=== PATIENT | male | born 1940 | race Caucasian/White ===

== ENCOUNTER 2017-09-22 15:00 | Emergency (ER) | payer MEDICARE, OTHER ==
[2017-09-22] MEDS: HYDROmorphONE 0.5 MG/0.5 ML SYG IV (22:02)
== END 2017-09-22 22:14 | disposition home or self-care (01) ==
LOC: E/R 15:00
DX: G89.4 Chronic pain syndrome (principal); J44.9 Chronic obstructive pulmonary disease, unspecified; I12.9 Hypertensive chronic kidney disease with stage 1 through stage 4 chronic kidney disease, or unspecified chronic kidney disease; N18.9 Chronic kidney disease, unspecified; I25.10 Atherosclerotic heart disease of native coronary artery without angina pectoris; E11.22 Type 2 diabetes mellitus with diabetic chronic kidney disease; Z79.4 Long term (current) use of insulin
CPT/HCPCS: 93005; 96374; 99284-25

== ENCOUNTER 2017-09-22 16:28 | Emergency (ER) | payer MEDICARE, OTHER | END 2017-09-22 18:30 | disposition left against medical advice (07) | LOC: FTE 16:28 → E/R 18:30 | DX: Z53.21 Procedure and treatment not carried out due to patient leaving prior to being seen by health care provider (principal) ==

== ENCOUNTER → 2017-10-28 | Outpatient (CLI) | payer MEDICARE, OTHER ==
[2017-10-28 10:01] LABS: ADD MAN DIFF? NO
[2017-10-28 10:13] LABS: BASOPHIL # 0.1 10^3/ul (0.0-0.1); BASOPHILS % 0.5 % (0.0-2.0); EOSINOPHILS # 0.4 10^3/ul (0.0-0.5); EOSINOPHILS % 3.8 % (0.0-7.0); HEMOGLOBIN 9.8 g/dl (14.0-18.0); LYMPHOCYTES # 2.2 10^3/ul (0.8-2.9); MEAN CORPUSCULAR HEMOGLOBIN 27.4 pg (29.0-33.0); MEAN CORPUSCULAR HGB CONC 32.7 g/dl (32.0-37.0); MEAN CORPUSCULAR VOLUME 83.8 fl (82.0-101.0); MEAN PLATELET VOLUME 9.8 fl (7.4-10.4); MONOCYTE # 0.9 10^3/ul (0.3-0.9); MONOCYTES % 8.3 % (0.0-11.0); NEUTROPHIL # 7.3 10^3/ul (1.6-7.5); NEUTROPHILS % 67.1 % (39.0-77.0); PLATELET COUNT 466 10^3/UL (140-415); RED BLOOD COUNT 3.58 10^6/ul (4.70-6.10); RED CELL DISTRIBUTION WIDTH 15.1 % (11.5-14.5)
[2017-10-28 10:13] LABS: WHITE BLOOD COUNT 10.8 10^3/ul (4.8-10.8)
[2017-10-28 10:29] LABS: ALANINE AMINOTRANSFERASE 29 IU/L (13-69); ALBUMIN 3.4 g/dl (3.3-4.9); ALBUMIN/GLOBULIN RATIO 1.06; ALKALINE PHOSPHATASE 75 IU/L (42-121); ANION GAP 14 (8-16); ASPARTATE AMINO TRANSFERASE 20 IU/L (15-46); BLOOD UREA NITROGEN 31 mg/dl (7-20); CALCIUM 8.6 mg/dl (8.4-10.2); CARBON DIOXIDE 20 mmol/L (21-31); CHLORIDE 110 mmol/L (97-110); CREATININE 3.02 mg/dl (0.61-1.24); GLUCOSE 128 mg/dl (70-220); POTASSIUM 4.7 mmol/L (3.5-5.1); SODIUM 139 mmol/L (135-144); TOTAL PROTEIN 6.6 g/dl (6.1-8.1)
[2017-10-28 10:35] LABS: ADD UMIC YES; UR ASCORBIC ACID 20 mg/dL (NEGATIVE); UR BILIRUBIN (Dip) NEGATIVE (NEGATIVE); UR BLOOD (Dip) NEGATIVE (NEGATIVE); UR CLARITY CLEAR (CLEAR); UR COLOR YELLOW (YELLOW); UR GLUCOSE (Dip) 1+ mg/dL (NEGATIVE); UR KETONES (Dip) NEGATIVE (NEGATIVE); UR LEUKOCYTE ESTERASE (Dip) NEGATIVE Leu/ul (NEGATIVE); UR NITRITE (Dip) NEGATIVE (NEGATIVE); UR RBC 1 /HPF (0-5); UR TOTAL PROTEIN (Dip) 3+ mg/dl (NEGATIVE); UR UROBILINOGEN (Dip) NEGATIVE (NEGATIVE); UR WBC 1 /HPF (0-5)
[2017-10-29 15:56] LABS: CREATININE, RANDOM URINE 122 mg/dL (20-370); MICROALBUMIN 588.5 mg/dL; MICROALBUMIN/CREATININE RATIO 4824 (<30)
[2017-10-29 18:56] LABS: PTH CALCIUM 8.5 mg/dL (8.6-10.3)
== END | disposition home or self-care (01) ==
LOC: LAB 08:44
DX: N18.9 Chronic kidney disease, unspecified (principal); E11.9 Type 2 diabetes mellitus without complications; E21.3 Hyperparathyroidism, unspecified; E55.9 Vitamin D deficiency, unspecified
CPT/HCPCS: 80053; 81001; 82043; 82306; 83970; 85025

== ENCOUNTER 2017-11-12 09:32 | Emergency (ER) | payer MEDICARE, OTHER ==
[2017-11-12 10:19] LABS: ADD MAN DIFF? NO
[2017-11-12 10:22] LABS: BASOPHILS % 0.3 % (0.0-2.0); EOSINOPHILS # 0.1 10^3/ul (0.0-0.5); EOSINOPHILS % 0.4 % (0.0-7.0); HEMATOCRIT 25.9 % (42.0-52.0); HEMOGLOBIN 8.5 g/dl (14.0-18.0); LYMPHOCYTES # 1.3 10^3/ul (0.8-2.9); LYMPHOCYTES % 8.8 % (15.0-51.0); MEAN CORPUSCULAR HEMOGLOBIN 27.8 pg (29.0-33.0); MEAN CORPUSCULAR HGB CONC 32.8 g/dl (32.0-37.0); MEAN CORPUSCULAR VOLUME 84.6 fl (82.0-101.0); MEAN PLATELET VOLUME 9.4 fl (7.4-10.4); MONOCYTE # 0.9 10^3/ul (0.3-0.9); MONOCYTES % 6.5 % (0.0-11.0); NEUTROPHIL # 12.1 10^3/ul (1.6-7.5); NEUTROPHILS % 83.4 % (39.0-77.0); PLATELET COUNT 343 10^3/UL (140-415); RED BLOOD COUNT 3.06 10^6/ul (4.70-6.10); RED CELL DISTRIBUTION WIDTH 16.4 % (11.5-14.5)
[2017-11-12 10:22] LABS: WHITE BLOOD COUNT 14.5 10^3/ul (4.8-10.8)
[2017-11-12 10:30] LABS: ADD UMIC YES; UR ASCORBIC ACID 20 mg/dL (NEGATIVE); UR BILIRUBIN (Dip) NEGATIVE (NEGATIVE); UR BLOOD (Dip) NEGATIVE (NEGATIVE); UR CLARITY SLIGHTLY CLOUDY (CLEAR); UR COLOR YELLOW (YELLOW); UR GLUCOSE (Dip) 2+ mg/dL (NEGATIVE); UR GRANULAR CAST FEW /HPF (NONE SEEN); UR KETONES (Dip) NEGATIVE (NEGATIVE); UR LEUKOCYTE ESTERASE (Dip) NEGATIVE Leu/ul (NEGATIVE); UR NITRITE (Dip) NEGATIVE (NEGATIVE); UR RBC 1 /HPF (0-5); UR SPECIFIC GRAVITY (Dip) 1.019 (1.003-1.030); UR TOTAL PROTEIN (Dip) 3+ mg/dl (NEGATIVE); UR UROBILINOGEN (Dip) NEGATIVE (NEGATIVE); UR WBC 2 /HPF (0-5)
[2017-11-12 10:50] LABS: ALANINE AMINOTRANSFERASE 28 IU/L (13-69); ALBUMIN 3.7 g/dl (3.3-4.9); ALBUMIN/GLOBULIN RATIO 1.12; ALKALINE PHOSPHATASE 77 IU/L (42-121); ANION GAP 15 (8-16); ASPARTATE AMINO TRANSFERASE 26 IU/L (15-46); BLOOD UREA NITROGEN 52 mg/dl (7-20); CALCIUM 9.2 mg/dl (8.4-10.2); CARBON DIOXIDE 18 mmol/L (21-31); CHLORIDE 110 mmol/L (97-110); CREATININE 3.52 mg/dl (0.61-1.24); GLUCOSE 149 mg/dl (70-220); LIPASE 205 U/L (23-300); SODIUM 138 mmol/L (135-144)
[2017-11-12] MEDS: ONDANSETRON 4 MG INJ IV (10:53)
[2017-11-12] MEDS: KETOROLAC 15 MG INJ IV (10:53)
[2017-11-12] MEDS: SOD CHLORIDE 0.9% 500 ML IV (10:53)
[2017-11-12 11:00] LABS: POTASSIUM 5.2 mmol/L (3.5-5.1)
[2017-11-12] MEDS: CEFTRIAXONE 1 GM/50 ML (PMX) 50 ML IVPB (13:13)
== END 2017-11-12 13:30 | disposition home or self-care (01) ==
LOC: E/R 09:32
DX: N30.90 Cystitis, unspecified without hematuria (principal); D72.829 Elevated white blood cell count, unspecified; N18.9 Chronic kidney disease, unspecified; E87.5 Hyperkalemia; E87.2 Acidosis; I12.9 Hypertensive chronic kidney disease with stage 1 through stage 4 chronic kidney disease, or unspecified chronic kidney disease; J44.9 Chronic obstructive pulmonary disease, unspecified; Z79.4 Long term (current) use of insulin
CPT/HCPCS: 36415; 74176; 80053; 81001; 83690; 85025; 87086; 96374; 96375; 99285-25

== ENCOUNTER 2017-11-15 10:46 | Inpatient (IN) | payer MEDICARE, OTHER ==
[2017-11-15 11:23] LABS: WHITE BLOOD COUNT 12.5 10^3/ul (4.8-10.8)
[2017-11-15 11:23] LABS: ADD MAN DIFF? NO; BASOPHIL # 0.1 10^3/ul (0.0-0.1); BASOPHILS % 0.4 % (0.0-2.0); EOSINOPHILS # 0.3 10^3/ul (0.0-0.5); EOSINOPHILS % 2.6 % (0.0-7.0); HEMATOCRIT 30.5 % (42.0-52.0); HEMOGLOBIN 9.6 g/dl (14.0-18.0); LYMPHOCYTES # 1.1 10^3/ul (0.8-2.9); MEAN CORPUSCULAR HEMOGLOBIN 27.4 pg (29.0-33.0); MEAN CORPUSCULAR HGB CONC 31.5 g/dl (32.0-37.0); MEAN CORPUSCULAR VOLUME 87.1 fl (82.0-101.0); MEAN PLATELET VOLUME 9.1 fl (7.4-10.4); MONOCYTE # 0.8 10^3/ul (0.3-0.9); MONOCYTES % 6.4 % (0.0-11.0); NEUTROPHIL # 10.1 10^3/ul (1.6-7.5); NEUTROPHILS % 81.1 % (39.0-77.0); PLATELET COUNT 459 10^3/UL (140-415); RED CELL DISTRIBUTION WIDTH 16.4 % (11.5-14.5)
[2017-11-15] MEDS: METHYLPREDNISOLONE 125 MG INJ IV (11:24)
[2017-11-15] MEDS: ALBUTEROL 0.5% (NEB) 2.5 MG/0.5 ML AMP INH (11:32)
[2017-11-15] MEDS: IPRATROPIUM (NEB) 0.5 MG/2.5 ML AMP INH (11:32)
[2017-11-15 11:45] LABS: INR 1.04; PROTIME 13.7 Sec (11.9-14.9); PT RATIO 1.1
[2017-11-15 11:57] LABS: ANION GAP 19 (8-16); BLOOD UREA NITROGEN 51 mg/dl (7-20); CALCIUM 9.7 mg/dl (8.4-10.2); CARBON DIOXIDE 18 mmol/L (21-31); CHLORIDE 111 mmol/L (97-110); GLUCOSE 166 mg/dl (70-220); POTASSIUM 5.5 mmol/L (3.5-5.1); SODIUM 142 mmol/L (135-144)
[2017-11-15 11:57] LABS: LACTIC ACID 0.8 mmol/L (0.5-2.0)
[2017-11-15] MEDS: ACETAMINOPHEN 325 MG TAB PO (12:25)
[2017-11-15] MEDS ORDERED: ACETAMINOPHEN 325 MG TAB PO (13:30)
[2017-11-15] MEDS ORDERED: ONDANSETRON 4 MG INJ IV ×2 (13:30→15:00)
[2017-11-15] MEDS: morphine 4 MG/ML VIAL IV (13:52)
[2017-11-15] MEDS ORDERED: CEFTRIAXONE 1 GM/50 ML (PMX) 50 ML IVPB (15:00)
[2017-11-15] MEDS ORDERED: NACL 0.9% 3 ML SYG IV (15:00)
[2017-11-15] MEDS ORDERED: GLUCOSE GEL 15 GRAM TUBE BUCCAL (15:00)
[2017-11-15] MEDS ORDERED: GLUCOSE GEL 15 GRAM TUBE PO ×2 (15:00)
[2017-11-15] MEDS ORDERED: DEXTROSE 50% 50 ML SYRINGE IV ×2 (15:00)
[2017-11-15] MEDS ORDERED: GLUCAGON 1 MG INJ IM (15:00)
[2017-11-15] MEDS ORDERED: DOCUSATE SODIUM 100 MG CAP PO (15:00)
[2017-11-15] MEDS ORDERED: AZITHROMYCIN 500MG/NS (PMX) 250 ML IVPB (15:00)
[2017-11-15] MEDS: HYDROCODONE/APAP (5/325) TAB PO (15:26)
[2017-11-15] MEDS: CEFTRIAXONE 1 GM/50 ML (PMX) 50 ML IVPB (15:38)
[2017-11-15] MEDS: SOD CHLORIDE 0.45% 1,000 ML IV (15:38)
[2017-11-15] MEDS: GUAIFENESIN/DM (SR) TAB PO (16:24)
[2017-11-15] MEDS: AZITHROMYCIN 500MG/NS (PMX) 250 ML IVPB (16:25)
[2017-11-15] MEDS: ALBUTEROL/IPRATROPIUM (NEB) 3 ML AMP HHN ×2 (17:29→22:08)
[2017-11-15] MEDS: ERGOCALCIFEROL 50,000 UNIT CAP PO (17:32)
[2017-11-15] MEDS: INSULIN ASPART [NOVOLOG] 3 ML PEN SC ×4 (17:34→20:57)
[2017-11-15 18:05] LABS: ANION GAP 23 (8-16); BLOOD UREA NITROGEN 46 mg/dl (7-20); CARBON DIOXIDE 14 mmol/L (21-31); CHLORIDE 109 mmol/L (97-110); CREATININE 3.47 mg/dl (0.61-1.24); POTASSIUM 5.5 mmol/L (3.5-5.1); SODIUM 140 mmol/L (135-144)
[2017-11-15 18:12] LABS: GLUCOSE 479 mg/dl (70-220)
[2017-11-15] MEDS: morphine 2 MG INJ IV ×2 (19:10→20:26)
[2017-11-15] MEDS: INSULIN REGULAR, HUMAN 100 UNIT/1 ML 3ML VIAL IV (19:48)
[2017-11-15] MEDS: MAGNESIUM SULFATE 2 GM/50 ML 50 ML IVPB (19:50)
[2017-11-15] MEDS ORDERED: morphine 2 MG INJ IV (20:30)
[2017-11-15] MEDS: SALMETEROL/FLUTICASONE 100/50 INHA INH (20:35)
[2017-11-15] MEDS: METOPROLOL 50 MG TAB PO (20:39)
[2017-11-15] MEDS: GABAPENTIN 300 MG CAP PO (20:40)
[2017-11-15] MEDS: HEPARIN 5,000 UNIT/0.5 ML VIAL SC (20:45)
[2017-11-15] MEDS: MONTELUKAST 10 MG TAB PO (21:31)
[2017-11-15] MEDS: LEVETIRACETAM 500 MG TAB PO (21:31)
[2017-11-15] MEDS: METHYLPREDNISOLONE 40 MG INJ IV (22:07)
[2017-11-16] MEDS: ALBUTEROL/IPRATROPIUM (NEB) 3 ML AMP HHN ×4 (01:00→22:30)
[2017-11-16] MEDS: ACCU-CHEK XX (02:21)
[2017-11-16] MEDS: SOD CHLORIDE 0.45% 1,000 ML IV ×3 (03:50→17:10)
[2017-11-16] MEDS: METHYLPREDNISOLONE 40 MG INJ IV ×2 (06:48→20:48)
[2017-11-16] MEDS ORDERED: INSULIN GLARGINE [LANtus] 3 ML PEN SC (08:00)
[2017-11-16] MEDS: INSULIN ASPART [NOVOLOG] 3 ML PEN SC ×7 (09:34→20:48)
[2017-11-16] MEDS: SALMETEROL/FLUTICASONE 100/50 INHA INH ×2 (09:35→20:47)
[2017-11-16] MEDS: INSULIN GLARGINE [LANtus] 3 ML PEN SC ×2 (09:35→11:43)
[2017-11-16] MEDS: TAMSULOSIN (SR) 0.4 MG CAP PO (09:36)
[2017-11-16] MEDS: CITRIC ACID/SODIUM CITRATE 15 ML CUP PO ×3 (09:36→20:47)
[2017-11-16] MEDS: LEVETIRACETAM 500 MG TAB PO ×2 (09:37→20:48)
[2017-11-16] MEDS: GUAIFENESIN/DM (SR) TAB PO (09:37)
[2017-11-16] MEDS: METOPROLOL 50 MG TAB PO ×2 (09:37→20:49)
[2017-11-16] MEDS: NIFEdipine (XL) 60 MG TAB PO (09:38)
[2017-11-16] MEDS: CLOPIDOGREL 75 MG TAB PO (09:38)
[2017-11-16] MEDS: PANTOPRAZOLE (EC) 40 MG TAB PO (09:38)
[2017-11-16] MEDS: GABAPENTIN 300 MG CAP PO ×3 (09:38→20:48)
[2017-11-16] MEDS: HEPARIN 5,000 UNIT/0.5 ML VIAL SC ×2 (09:39→20:57)
[2017-11-16 11:09] LABS: ADD MAN DIFF? NO
[2017-11-16 11:12] LABS: ABNORMAL IP MESSAGE 1; BASOPHILS % 0.1 % (0.0-2.0); HEMATOCRIT 22.1 % (42.0-52.0); HEMOGLOBIN 7.1 g/dl (14.0-18.0); LYMPHOCYTES # 0.6 10^3/ul (0.8-2.9); MEAN CORPUSCULAR HGB CONC 32.1 g/dl (32.0-37.0); MEAN PLATELET VOLUME 9.9 fl (7.4-10.4); MONOCYTE # 0.3 10^3/ul (0.3-0.9); MONOCYTES % 1.6 % (0.0-11.0); NEUTROPHIL # 18.5 10^3/ul (1.6-7.5); NEUTROPHILS % 94.4 % (39.0-77.0); PLATELET COUNT 393 10^3/UL (140-415); POSITIVE DIFF @See below; RED BLOOD COUNT 2.63 10^6/ul (4.70-6.10); RED CELL DISTRIBUTION WIDTH 16.5 % (11.5-14.5)
[2017-11-16 11:12] LABS: WHITE BLOOD COUNT 19.6 10^3/ul (4.8-10.8)
[2017-11-16 11:35] LABS: ALANINE AMINOTRANSFERASE 27 IU/L (13-69); ALBUMIN 2.7 g/dl (3.3-4.9); ALBUMIN/GLOBULIN RATIO 0.79; ALKALINE PHOSPHATASE 63 IU/L (42-121); ANION GAP 17 (8-16); ASPARTATE AMINO TRANSFERASE 14 IU/L (15-46); BLOOD UREA NITROGEN 53 mg/dl (7-20); CARBON DIOXIDE 16 mmol/L (21-31); CHLORIDE 108 mmol/L (97-110); CHOL/HDL RATIO 4.3 RATIO; CHOLESTEROL 149 mg/dl (100-200); GLUCOSE 232 mg/dl (70-220); HDL CHOLESTEROL 34 mg/dl (31-75); LDL CHOLESTEROL,CALCULATED 94 mg/dl; MAGNESIUM 1.6 mg/dl (1.7-2.5); PHOSPHORUS 4.7 mg/dl (2.5-4.9); POTASSIUM 5.1 mmol/L (3.5-5.1); SODIUM 136 mmol/L (135-144); TOTAL PROTEIN 6.1 g/dl (6.1-8.1); TRIGLYCERIDES 103 mg/dl (0-149)
[2017-11-16 11:59] LABS: HEMOGLOBIN A1C 6.3 % (0-5.9)
[2017-11-16] MEDS ORDERED: PIPER-TAZO 3.375 GM IV (PMX) 100 ML IVPB (12:00)
[2017-11-16] MEDS ORDERED: VANCOMYCIN IV PER PHARMACY XX (12:00)
[2017-11-16 12:05] LABS: THYROID STIMULATING HORMONE 0.265 MIU/L (0.465-4.680)
[2017-11-16] MEDS: CEFTRIAXONE 1 GM/50 ML (PMX) 50 ML IVPB (15:00)
[2017-11-16 17:41] LABS: FREE T4 (FREE THYROXINE) 1.11 ng/dl (0.85-1.93)
[2017-11-16] MEDS: AZITHROMYCIN 500MG/NS (PMX) 250 ML IVPB (18:15)
[2017-11-16] MEDS: MONTELUKAST 10 MG TAB PO (20:48)
[2017-11-17] MEDS: ALBUTEROL/IPRATROPIUM (NEB) 3 ML AMP HHN ×6 (01:00→21:22)
[2017-11-17] MEDS: ACCU-CHEK XX (02:00)
[2017-11-17] MEDS: SOD CHLORIDE 0.45% 1,000 ML IV ×2 (06:39→15:27)
[2017-11-17] MEDS: HEPARIN 5,000 UNIT/0.5 ML VIAL SC ×2 (08:26→21:13)
[2017-11-17] MEDS: INSULIN ASPART [NOVOLOG] 3 ML PEN SC ×7 (08:27→21:00)
[2017-11-17] MEDS: SALMETEROL/FLUTICASONE 100/50 INHA INH ×2 (08:28→21:04)
[2017-11-17] MEDS: INSULIN GLARGINE [LANtus] 3 ML PEN SC (08:28)
[2017-11-17] MEDS: GABAPENTIN 300 MG CAP PO ×3 (08:29→21:04)
[2017-11-17] MEDS: LEVETIRACETAM 500 MG TAB PO ×2 (08:29→21:04)
[2017-11-17] MEDS: TAMSULOSIN (SR) 0.4 MG CAP PO (08:29)
[2017-11-17] MEDS: CLOPIDOGREL 75 MG TAB PO (08:29)
[2017-11-17] MEDS: METHYLPREDNISOLONE 40 MG INJ IV ×2 (08:29→21:04)
[2017-11-17] MEDS: GUAIFENESIN/DM (SR) TAB PO (08:29)
[2017-11-17] MEDS: PANTOPRAZOLE (EC) 40 MG TAB PO (08:30)
[2017-11-17] MEDS: CITRIC ACID/SODIUM CITRATE 15 ML CUP PO ×3 (08:30→21:34)
[2017-11-17 08:32] LABS: WHITE BLOOD COUNT 18.2 10^3/ul (4.8-10.8)
[2017-11-17 08:32] LABS: ADD MAN DIFF? NO; BASOPHILS % 0.1 % (0.0-2.0); HEMATOCRIT 23.6 % (42.0-52.0); HEMOGLOBIN 7.6 g/dl (14.0-18.0); LYMPHOCYTES # 0.9 10^3/ul (0.8-2.9); LYMPHOCYTES % 4.8 % (15.0-51.0); MEAN CORPUSCULAR HEMOGLOBIN 27.3 pg (29.0-33.0); MEAN CORPUSCULAR HGB CONC 32.2 g/dl (32.0-37.0); MEAN CORPUSCULAR VOLUME 84.9 fl (82.0-101.0); MEAN PLATELET VOLUME 9.9 fl (7.4-10.4); MONOCYTE # 0.4 10^3/ul (0.3-0.9); MONOCYTES % 2.1 % (0.0-11.0); NEUTROPHIL # 16.8 10^3/ul (1.6-7.5); NEUTROPHILS % 92.2 % (39.0-77.0); NUCLEATED RED BLOOD CELLS% 0.2 /100WBC (0.0-0.0); PLATELET COUNT 413 10^3/UL (140-415); RED BLOOD COUNT 2.78 10^6/ul (4.70-6.10); RED CELL DISTRIBUTION WIDTH 16.6 % (11.5-14.5)
[2017-11-17 08:59] LABS: ANION GAP 18 (8-16); BLOOD UREA NITROGEN 73 mg/dl (7-20); CARBON DIOXIDE 16 mmol/L (21-31); CHLORIDE 109 mmol/L (97-110); CREATININE 3.78 mg/dl (0.61-1.24); GLUCOSE 161 mg/dl (70-220); SODIUM 138 mmol/L (135-144)
[2017-11-17] MEDS: METOPROLOL 50 MG TAB PO ×2 (09:00→21:04)
[2017-11-17] MEDS: NIFEdipine (XL) 60 MG TAB PO (09:00)
[2017-11-17 09:04] LABS: POTASSIUM 5.2 mmol/L (3.5-5.1)
[2017-11-17] MEDS: ACETAMINOPHEN 325 MG TAB PO ×2 (12:53→21:33)
[2017-11-17] MEDS: CEFTRIAXONE 1 GM/50 ML (PMX) 50 ML IVPB (15:21)
[2017-11-17] MEDS: AZITHROMYCIN 500MG/NS (PMX) 250 ML IVPB (15:28)
[2017-11-17] MEDS: GUAIFENESIN/DM 5ML CUP PO (21:04)
[2017-11-17] MEDS: MAGNESIUM SULFATE 2 GM/50 ML 50 ML IVPB (21:05)
[2017-11-17] MEDS: MONTELUKAST 10 MG TAB PO (21:05)
[2017-11-18] MEDS: GUAIFENESIN/DM 5ML CUP PO (00:51)
[2017-11-18] MEDS: ALBUTEROL/IPRATROPIUM (NEB) 3 ML AMP HHN ×6 (01:22→20:26)
[2017-11-18] MEDS: ACCU-CHEK XX (01:53)
[2017-11-18] MEDS: HYDROCODONE/APAP (5/325) TAB PO ×2 (05:29→14:00)
[2017-11-18] MEDS: TAMSULOSIN (SR) 0.4 MG CAP PO (08:15)
[2017-11-18] MEDS: CITRIC ACID/SODIUM CITRATE 15 ML CUP PO ×3 (08:15→21:03)
[2017-11-18] MEDS: LEVETIRACETAM 500 MG TAB PO ×2 (08:15→21:04)
[2017-11-18] MEDS: METHYLPREDNISOLONE 40 MG INJ IV (08:15)
[2017-11-18] MEDS: CLOPIDOGREL 75 MG TAB PO (08:15)
[2017-11-18] MEDS: GUAIFENESIN/DM (SR) TAB PO (08:15)
[2017-11-18] MEDS: PANTOPRAZOLE (EC) 40 MG TAB PO (08:15)
[2017-11-18] MEDS: SALMETEROL/FLUTICASONE 100/50 INHA INH ×2 (08:15→21:13)
[2017-11-18] MEDS: GABAPENTIN 300 MG CAP PO ×3 (08:15→21:03)
[2017-11-18] MEDS: NIFEdipine (XL) 60 MG TAB PO (08:17)
[2017-11-18] MEDS: METOPROLOL 50 MG TAB PO ×2 (08:17→21:13)
[2017-11-18] MEDS: HEPARIN 5,000 UNIT/0.5 ML VIAL SC ×2 (08:19→21:06)
[2017-11-18] MEDS: INSULIN GLARGINE [LANtus] 3 ML PEN SC (08:19)
[2017-11-18] MEDS: INSULIN ASPART [NOVOLOG] 3 ML PEN SC ×7 (08:20→21:05)
[2017-11-18 08:45] LABS: ADD MAN DIFF? NO
[2017-11-18 09:04] LABS: WHITE BLOOD COUNT 15.4 10^3/ul (4.8-10.8)
[2017-11-18 09:04] LABS: BASOPHILS % 0.1 % (0.0-2.0); HEMATOCRIT 24.2 % (42.0-52.0); HEMOGLOBIN 7.9 g/dl (14.0-18.0); LYMPHOCYTES # 0.6 10^3/ul (0.8-2.9); MEAN CORPUSCULAR HEMOGLOBIN 27.3 pg (29.0-33.0); MEAN CORPUSCULAR HGB CONC 32.6 g/dl (32.0-37.0); MEAN CORPUSCULAR VOLUME 83.7 fl (82.0-101.0); MEAN PLATELET VOLUME 10.2 fl (7.4-10.4); MONOCYTE # 0.3 10^3/ul (0.3-0.9); MONOCYTES % 1.8 % (0.0-11.0); NEUTROPHIL # 14.4 10^3/ul (1.6-7.5); NEUTROPHILS % 93.5 % (39.0-77.0); NUCLEATED RED BLOOD CELLS # 0.1 10^3/ul (0.0-0.0); NUCLEATED RED BLOOD CELLS% 0.4 /100WBC (0.0-0.0); PLATELET COUNT 449 10^3/UL (140-415); RED BLOOD COUNT 2.89 10^6/ul (4.70-6.10); RED CELL DISTRIBUTION WIDTH 16.8 % (11.5-14.5)
[2017-11-18] MEDS: SOD CHLORIDE 0.45% 1,000 ML IV ×2 (09:10→21:13)
[2017-11-18 09:17] LABS: ANION GAP 20 (8-16); BLOOD UREA NITROGEN 80 mg/dl (7-20); CALCIUM 8.7 mg/dl (8.4-10.2); CARBON DIOXIDE 17 mmol/L (21-31); CHLORIDE 107 mmol/L (97-110); CREATININE 3.61 mg/dl (0.61-1.24); GLUCOSE 195 mg/dl (70-220); POTASSIUM 4.6 mmol/L (3.5-5.1); SODIUM 139 mmol/L (135-144)
[2017-11-18 09:23] LABS: MAGNESIUM 2.2 mg/dl (1.7-2.5)
[2017-11-18 09:23] LABS: PHOSPHORUS 7.3 mg/dl (2.5-4.9)
[2017-11-18] MEDS: CEFTRIAXONE 1 GM/50 ML (PMX) 50 ML IVPB (14:32)
[2017-11-18] MEDS: ACETAMINOPHEN 325 MG TAB PO (15:49)
[2017-11-18] MEDS: AZITHROMYCIN 500MG/NS (PMX) 250 ML IVPB (15:49)
[2017-11-18] MEDS: MONTELUKAST 10 MG TAB PO (21:12)
[2017-11-19] MEDS: ALBUTEROL/IPRATROPIUM (NEB) 3 ML AMP HHN ×8 (00:41→21:10)
[2017-11-19] MEDS: ACCU-CHEK XX (02:00)
[2017-11-19 07:58] LABS: ADD MAN DIFF? NO
[2017-11-19] MEDS: INSULIN ASPART [NOVOLOG] 3 ML PEN SC ×7 (08:00→22:11)
[2017-11-19 08:07] LABS: HEMATOCRIT 23.2 % (42.0-52.0); HEMOGLOBIN 7.4 g/dl (14.0-18.0); LYMPHOCYTES % 8.7 % (15.0-51.0); MEAN CORPUSCULAR HEMOGLOBIN 26.8 pg (29.0-33.0); MEAN CORPUSCULAR HGB CONC 31.9 g/dl (32.0-37.0); MEAN CORPUSCULAR VOLUME 84.1 fl (82.0-101.0); MEAN PLATELET VOLUME 10.3 fl (7.4-10.4); MONOCYTE # 0.7 10^3/ul (0.3-0.9); MONOCYTES % 5.6 % (0.0-11.0); NEUTROPHIL # 9.8 10^3/ul (1.6-7.5); NUCLEATED RED BLOOD CELLS # 0.1 10^3/ul (0.0-0.0); NUCLEATED RED BLOOD CELLS% 0.7 /100WBC (0.0-0.0); PLATELET COUNT 387 10^3/UL (140-415); RED BLOOD COUNT 2.76 10^6/ul (4.70-6.10); RED CELL DISTRIBUTION WIDTH 16.7 % (11.5-14.5)
[2017-11-19 08:07] LABS: WHITE BLOOD COUNT 11.6 10^3/ul (4.8-10.8)
[2017-11-19 08:27] LABS: ANION GAP 18 (8-16); BLOOD UREA NITROGEN 80 mg/dl (7-20); CALCIUM 8.7 mg/dl (8.4-10.2); CARBON DIOXIDE 17 mmol/L (21-31); CHLORIDE 109 mmol/L (97-110); CREATININE 3.65 mg/dl (0.61-1.24); GLUCOSE 196 mg/dl (70-220); POTASSIUM 4.1 mmol/L (3.5-5.1); SODIUM 140 mmol/L (135-144)
[2017-11-19 10:00] LABS: ADD MAN DIFF? NO
[2017-11-19] MEDS: METHYLPREDNISOLONE 40 MG INJ IV (10:02)
[2017-11-19 10:07] LABS: HEMATOCRIT 24.6 % (42.0-52.0); LYMPHOCYTES # 1.2 10^3/ul (0.8-2.9); LYMPHOCYTES % 10.2 % (15.0-51.0); MEAN CORPUSCULAR HEMOGLOBIN 27.1 pg (29.0-33.0); MEAN CORPUSCULAR HGB CONC 32.5 g/dl (32.0-37.0); MEAN CORPUSCULAR VOLUME 83.4 fl (82.0-101.0); MEAN PLATELET VOLUME 9.7 fl (7.4-10.4); MONOCYTE # 0.7 10^3/ul (0.3-0.9); MONOCYTES % 5.8 % (0.0-11.0); NEUTROPHIL # 10.1 10^3/ul (1.6-7.5); NEUTROPHILS % 82.7 % (39.0-77.0); NUCLEATED RED BLOOD CELLS # 0.1 10^3/ul (0.0-0.0); NUCLEATED RED BLOOD CELLS% 0.5 /100WBC (0.0-0.0); PLATELET COUNT 418 10^3/UL (140-415); RED BLOOD COUNT 2.95 10^6/ul (4.70-6.10); RED CELL DISTRIBUTION WIDTH 16.4 % (11.5-14.5)
[2017-11-19 10:07] LABS: WHITE BLOOD COUNT 12.2 10^3/ul (4.8-10.8)
[2017-11-19 10:16] LABS: AADO2 Arterial 79.9 mmHg (7.0-24.0); Allen Test ACCEPTAB; Arterial Base Excess -7.6 mmol/L (-3.0-3); Arterial Blood Gas Oxygen Sat 94.2 mmHG (95.0-100.0); Arterial COHb 0.3 % (0.0-3.0); Arterial Fraction of Oxyhgb 93.5 % (93.0-99.0); Arterial MetHb 0.4 % (0.0-1.5); Arterial Total Hemglobin 8.6 g/dl (12.0-18.0); Arterial pCO2 30.8 mmhg (35-45); MODE NASAL CANNULA; Site Right Brachial
[2017-11-19 10:33] LABS: ALANINE AMINOTRANSFERASE 20 IU/L (13-69); ALBUMIN 3.1 g/dl (3.3-4.9); ALBUMIN/GLOBULIN RATIO 0.91; ALKALINE PHOSPHATASE 65 IU/L (42-121); ANION GAP 19 (8-16); ASPARTATE AMINO TRANSFERASE 14 IU/L (15-46); BLOOD UREA NITROGEN 80 mg/dl (7-20); CALCIUM 8.8 mg/dl (8.4-10.2); CARBON DIOXIDE 18 mmol/L (21-31); CHLORIDE 109 mmol/L (97-110); CREATININE 3.65 mg/dl (0.61-1.24); GLUCOSE 173 mg/dl (70-220); MAGNESIUM 1.9 mg/dl (1.7-2.5); POTASSIUM 3.9 mmol/L (3.5-5.1); SODIUM 142 mmol/L (135-144); TOTAL PROTEIN 6.5 g/dl (6.1-8.1)
[2017-11-19 10:44] LABS: TROPONIN-I 0.046 ng/ml (0.00-0.12)
[2017-11-19] MEDS: NIFEdipine (XL) 60 MG TAB PO (12:13)
[2017-11-19] MEDS: CITRIC ACID/SODIUM CITRATE 15 ML CUP PO ×3 (12:13→22:19)
[2017-11-19] MEDS: SALMETEROL/FLUTICASONE 100/50 INHA INH ×2 (12:13→22:15)
[2017-11-19] MEDS: predniSONE 20 MG TAB PO (12:14)
[2017-11-19] MEDS: PANTOPRAZOLE (EC) 40 MG TAB PO (12:14)
[2017-11-19] MEDS: GUAIFENESIN/DM (SR) TAB PO (12:14)
[2017-11-19] MEDS: CLOPIDOGREL 75 MG TAB PO (12:14)
[2017-11-19] MEDS: GABAPENTIN 300 MG CAP PO ×3 (12:15→22:19)
[2017-11-19] MEDS: METOPROLOL 50 MG TAB PO ×2 (12:15→22:16)
[2017-11-19] MEDS: LEVETIRACETAM 500 MG TAB PO ×2 (12:15→22:15)
[2017-11-19] MEDS: TAMSULOSIN (SR) 0.4 MG CAP PO (12:15)
[2017-11-19] MEDS: HEPARIN 5,000 UNIT/0.5 ML VIAL SC (12:20)
[2017-11-19] MEDS: INSULIN GLARGINE [LANtus] 3 ML PEN SC (12:20)
[2017-11-19] MEDS ORDERED: ALBUTEROL/IPRATROPIUM (NEB) 3 ML AMP HHN (13:00)
[2017-11-19] MEDS: SOD CHLORIDE 0.45% 1,000 ML IV (13:30)
[2017-11-19] MEDS: CEFEPIME HCL IVPB (15:00)
[2017-11-19] MEDS: DEXTROSE 5% IVPB (15:00)
[2017-11-19] MEDS: HYDROCODONE/APAP (5/325) TAB PO ×2 (16:29→22:20)
[2017-11-19] MEDS: AZITHROMYCIN 500MG/NS (PMX) 250 ML IVPB (18:09)
[2017-11-19] MEDS: MONTELUKAST 10 MG TAB PO (22:15)
[2017-11-20] MEDS: ALBUTEROL/IPRATROPIUM (NEB) 3 ML AMP HHN ×6 (00:34→22:42)
[2017-11-20] MEDS: SOD CHLORIDE 0.45% 1,000 ML IV ×2 (01:00→15:54)
[2017-11-20] MEDS: DEXTROSE 5% IVPB ×2 (01:06→15:53)
[2017-11-20] MEDS: CEFEPIME HCL IVPB ×2 (01:06→15:53)
[2017-11-20] MEDS: ACCU-CHEK XX (02:00)
[2017-11-20 06:48] LABS: ADD MAN DIFF? NO
[2017-11-20 06:50] LABS: BASOPHILS % 0.1 % (0.0-2.0); HEMATOCRIT 23.5 % (42.0-52.0); HEMOGLOBIN 7.6 g/dl (14.0-18.0); LYMPHOCYTES # 0.8 10^3/ul (0.8-2.9); LYMPHOCYTES % 6.9 % (15.0-51.0); MEAN CORPUSCULAR HGB CONC 32.3 g/dl (32.0-37.0); MEAN CORPUSCULAR VOLUME 83.3 fl (82.0-101.0); MEAN PLATELET VOLUME 10.5 fl (7.4-10.4); MONOCYTE # 0.6 10^3/ul (0.3-0.9); MONOCYTES % 5.2 % (0.0-11.0); NEUTROPHIL # 9.6 10^3/ul (1.6-7.5); NEUTROPHILS % 86.6 % (39.0-77.0); NUCLEATED RED BLOOD CELLS # 0.1 10^3/ul (0.0-0.0); NUCLEATED RED BLOOD CELLS% 0.8 /100WBC (0.0-0.0); PLATELET COUNT 388 10^3/UL (140-415); RED BLOOD COUNT 2.82 10^6/ul (4.70-6.10); RED CELL DISTRIBUTION WIDTH 16.2 % (11.5-14.5)
[2017-11-20 06:50] LABS: WHITE BLOOD COUNT 11.1 10^3/ul (4.8-10.8)
[2017-11-20 07:13] LABS: ANION GAP 18 (8-16); BLOOD UREA NITROGEN 80 mg/dl (7-20); CALCIUM 8.6 mg/dl (8.4-10.2); CARBON DIOXIDE 18 mmol/L (21-31); CHLORIDE 106 mmol/L (97-110); CREATININE 3.99 mg/dl (0.61-1.24); GLUCOSE 184 mg/dl (70-220); POTASSIUM 4.2 mmol/L (3.5-5.1); SODIUM 138 mmol/L (135-144)
[2017-11-20] MEDS: CITRIC ACID/SODIUM CITRATE 15 ML CUP PO ×3 (09:07→21:32)
[2017-11-20] MEDS: SALMETEROL/FLUTICASONE 100/50 INHA INH ×2 (09:07→21:32)
[2017-11-20] MEDS: INSULIN GLARGINE [LANtus] 3 ML PEN SC (09:10)
[2017-11-20] MEDS: INSULIN ASPART [NOVOLOG] 3 ML PEN SC ×7 (09:11→21:40)
[2017-11-20] MEDS: GUAIFENESIN/DM (SR) TAB PO (09:13)
[2017-11-20] MEDS: TAMSULOSIN (SR) 0.4 MG CAP PO (09:13)
[2017-11-20] MEDS: CLOPIDOGREL 75 MG TAB PO (09:13)
[2017-11-20] MEDS: PANTOPRAZOLE (EC) 40 MG TAB PO (09:13)
[2017-11-20] MEDS: GABAPENTIN 300 MG CAP PO ×3 (09:13→21:33)
[2017-11-20] MEDS: predniSONE 20 MG TAB PO (09:13)
[2017-11-20] MEDS: LEVETIRACETAM 500 MG TAB PO ×2 (09:14→21:33)
[2017-11-20] MEDS: NIFEdipine (XL) 60 MG TAB PO (09:15)
[2017-11-20] MEDS: METOPROLOL 50 MG TAB PO ×2 (09:15→21:33)
[2017-11-20] MEDS: HYDROCODONE/APAP (5/325) TAB PO ×2 (09:25→17:05)
[2017-11-20] MEDS: LIDOCAINE 1% (MPF) 5 ML VIAL (15:25)
[2017-11-20] MEDS: AZITHROMYCIN 500MG/NS (PMX) 250 ML IVPB (15:54)
[2017-11-20 16:49] LABS: FLUID GLUCOSE 137 mg/dl; FLUID LD 321 U/L; FLUID TOTAL PROTEIN < 2.0 g/dl
[2017-11-20 17:18] LABS: FLD MN% 73.3 %; FLD PMN% 26.7 %; FLD RBC 1000 /uL; FLD WBC 700 /cmm
[2017-11-20 17:37] LABS: FLD CLARITY SLIGHTLY CLOUDY; FLD COLOR YELLOW
[2017-11-20 17:37] LABS: FLD TYPE THORACENTHESIS
[2017-11-20] MEDS: MONTELUKAST 10 MG TAB PO (21:33)
[2017-11-20] MEDS: HEPARIN 5,000 UNIT/0.5 ML VIAL SC (21:44)
[2017-11-21] MEDS: ALBUTEROL/IPRATROPIUM (NEB) 3 ML AMP HHN ×6 (01:46→21:54)
[2017-11-21] MEDS: ACCU-CHEK XX (02:00)
[2017-11-21] MEDS: SOD CHLORIDE 0.45% 1,000 ML IV ×2 (02:55→17:10)
[2017-11-21] MEDS: HYDROCODONE/APAP (5/325) TAB PO ×3 (05:50→21:30)
[2017-11-21 07:57] LABS: ADD MAN DIFF? NO
[2017-11-21 07:58] LABS: EOSINOPHILS % 0.2 % (0.0-7.0); HEMOGLOBIN 7.7 g/dl (14.0-18.0); LYMPHOCYTES # 1.6 10^3/ul (0.8-2.9); LYMPHOCYTES % 12.2 % (15.0-51.0); MEAN CORPUSCULAR HEMOGLOBIN 26.6 pg (29.0-33.0); MEAN CORPUSCULAR HGB CONC 32.1 g/dl (32.0-37.0); MEAN PLATELET VOLUME 10.5 fl (7.4-10.4); MONOCYTES % 7.5 % (0.0-11.0); NEUTROPHIL # 10.1 10^3/ul (1.6-7.5); NEUTROPHILS % 78.8 % (39.0-77.0); NUCLEATED RED BLOOD CELLS # 0.1 10^3/ul (0.0-0.0); NUCLEATED RED BLOOD CELLS% 0.5 /100WBC (0.0-0.0); PLATELET COUNT 403 10^3/UL (140-415); RED BLOOD COUNT 2.89 10^6/ul (4.70-6.10); RED CELL DISTRIBUTION WIDTH 16.3 % (11.5-14.5)
[2017-11-21 07:58] LABS: WHITE BLOOD COUNT 12.8 10^3/ul (4.8-10.8)
[2017-11-21 08:23] LABS: ANION GAP 18 (8-16); BLOOD UREA NITROGEN 79 mg/dl (7-20); CALCIUM 8.3 mg/dl (8.4-10.2); CARBON DIOXIDE 19 mmol/L (21-31); CHLORIDE 106 mmol/L (97-110); CREATININE 3.48 mg/dl (0.61-1.24); GLUCOSE 101 mg/dl (70-220); POTASSIUM 3.7 mmol/L (3.5-5.1); SODIUM 139 mmol/L (135-144)
[2017-11-21] MEDS: HEPARIN 5,000 UNIT/0.5 ML VIAL SC (09:00)
[2017-11-21] MEDS: GUAIFENESIN/DM (SR) TAB PO (09:01)
[2017-11-21] MEDS: METOPROLOL 50 MG TAB PO ×2 (09:03→21:00)
[2017-11-21] MEDS: LEVETIRACETAM 500 MG TAB PO ×2 (09:03→21:31)
[2017-11-21] MEDS: NIFEdipine (XL) 60 MG TAB PO (09:03)
[2017-11-21] MEDS: CLOPIDOGREL 75 MG TAB PO (09:03)
[2017-11-21] MEDS: predniSONE 20 MG TAB PO (09:03)
[2017-11-21] MEDS: PANTOPRAZOLE (EC) 40 MG TAB PO (09:03)
[2017-11-21] MEDS: TAMSULOSIN (SR) 0.4 MG CAP PO (09:03)
[2017-11-21] MEDS: GABAPENTIN 300 MG CAP PO ×3 (09:04→21:32)
[2017-11-21] MEDS: SALMETEROL/FLUTICASONE 100/50 INHA INH ×2 (09:14→21:30)
[2017-11-21] MEDS: INSULIN GLARGINE [LANtus] 3 ML PEN SC (09:15)
[2017-11-21] MEDS: INSULIN ASPART [NOVOLOG] 3 ML PEN SC ×7 (09:17→21:00)
[2017-11-21] MEDS: CITRIC ACID/SODIUM CITRATE 15 ML CUP PO ×3 (09:18→21:30)
[2017-11-21] MEDS: CEFEPIME HCL IVPB (15:29)
[2017-11-21] MEDS: DEXTROSE 5% IVPB (15:29)
[2017-11-21] MEDS: AZITHROMYCIN 500MG/NS (PMX) 250 ML IVPB (16:53)
[2017-11-21] MEDS: ACETAMINOPHEN 325 MG TAB PO (19:51)
[2017-11-21] MEDS: MONTELUKAST 10 MG TAB PO (21:32)
[2017-11-21 23:33] LABS: OCCULT BLOOD STOOL NEGATIVE (NEGATIVE)
[2017-11-22] MEDS: ALBUTEROL/IPRATROPIUM (NEB) 3 ML AMP HHN ×6 (00:55→20:02)
[2017-11-22] MEDS: ACCU-CHEK XX (02:00)
[2017-11-22] MEDS: ACETAMINOPHEN 325 MG TAB PO (02:11)
[2017-11-22] MEDS: morphine 2 MG INJ IV (02:11)
[2017-11-22] MEDS: SOD CHLORIDE 0.45% 1,000 ML IV (06:30)
[2017-11-22] MEDS: INSULIN ASPART [NOVOLOG] 3 ML PEN SC ×7 (08:00→21:00)
[2017-11-22 08:52] LABS: ADD MAN DIFF? NO
[2017-11-22 09:00] LABS: BASOPHILS % 0.1 % (0.0-2.0); EOSINOPHILS # 0.2 10^3/ul (0.0-0.5); HEMATOCRIT 26.3 % (42.0-52.0); HEMOGLOBIN 8.5 g/dl (14.0-18.0); LYMPHOCYTES # 2.7 10^3/ul (0.8-2.9); LYMPHOCYTES % 13.9 % (15.0-51.0); MEAN CORPUSCULAR HEMOGLOBIN 26.5 pg (29.0-33.0); MEAN CORPUSCULAR HGB CONC 32.3 g/dl (32.0-37.0); MEAN CORPUSCULAR VOLUME 81.9 fl (82.0-101.0); MEAN PLATELET VOLUME 10.3 fl (7.4-10.4); MONOCYTE # 1.4 10^3/ul (0.3-0.9); MONOCYTES % 7.3 % (0.0-11.0); NEUTROPHIL # 14.7 10^3/ul (1.6-7.5); NEUTROPHILS % 75.7 % (39.0-77.0); NUCLEATED RED BLOOD CELLS% 0.2 /100WBC (0.0-0.0); PLATELET COUNT 478 10^3/UL (140-415); RED BLOOD COUNT 3.21 10^6/ul (4.70-6.10); RED CELL DISTRIBUTION WIDTH 16.4 % (11.5-14.5)
[2017-11-22 09:00] LABS: WHITE BLOOD COUNT 19.4 10^3/ul (4.8-10.8)
[2017-11-22] MEDS: GABAPENTIN 300 MG CAP PO ×3 (09:06→21:23)
[2017-11-22] MEDS: PANTOPRAZOLE (EC) 40 MG TAB PO (09:06)
[2017-11-22] MEDS: CLOPIDOGREL 75 MG TAB PO (09:06)
[2017-11-22] MEDS: GUAIFENESIN/DM (SR) TAB PO (09:06)
[2017-11-22] MEDS: predniSONE 20 MG TAB PO (09:06)
[2017-11-22] MEDS: TAMSULOSIN (SR) 0.4 MG CAP PO (09:06)
[2017-11-22] MEDS: NIFEdipine (XL) 60 MG TAB PO (09:07)
[2017-11-22] MEDS: METOPROLOL 50 MG TAB PO (09:08)
[2017-11-22] MEDS: LEVETIRACETAM 500 MG TAB PO ×2 (09:08→21:25)
[2017-11-22] MEDS: SALMETEROL/FLUTICASONE 100/50 INHA INH ×2 (09:08→21:24)
[2017-11-22] MEDS: CITRIC ACID/SODIUM CITRATE 15 ML CUP PO ×3 (09:08→21:24)
[2017-11-22] MEDS: INSULIN GLARGINE [LANtus] 3 ML PEN SC (09:11)
[2017-11-22 09:22] LABS: ANION GAP 18 (8-16); BLOOD UREA NITROGEN 73 mg/dl (7-20); CALCIUM 8.2 mg/dl (8.4-10.2); CARBON DIOXIDE 18 mmol/L (21-31); CHLORIDE 106 mmol/L (97-110); CREATININE 3.19 mg/dl (0.61-1.24); GLUCOSE 122 mg/dl (70-220); POTASSIUM 4.3 mmol/L (3.5-5.1); SODIUM 138 mmol/L (135-144)
[2017-11-22 14:57] LABS: IRON 37 ug/dl (35-150)
[2017-11-22 15:07] LABS: % IRON SATURATION 13 % SAT (22-52); TOTAL IRON BINDING CAPACITY 294 ug/dl (241-421)
[2017-11-22] MEDS: ERGOCALCIFEROL 50,000 UNIT CAP PO (16:14)
[2017-11-22] MEDS: CEFEPIME 1GM/50 ML (PMX) 50 ML IVPB (18:51)
[2017-11-22] MEDS: METOPROLOL 25 MG TAB PO (21:27)
[2017-11-22] MEDS: MONTELUKAST 10 MG TAB PO (21:27)
[2017-11-22] MEDS: hydrALAzine 20 MG INJ IV (22:41)
[2017-11-22] MEDS: HYDROCODONE/APAP (5/325) TAB PO (22:41)
[2017-11-23] MEDS: ALBUTEROL/IPRATROPIUM (NEB) 3 ML AMP HHN ×6 (00:41→20:50)
[2017-11-23] MEDS: ACCU-CHEK XX (01:38)
[2017-11-23] MEDS: PROMETHAZINE/CODEINE 5ML CUP PO ×2 (01:44→22:59)
[2017-11-23] MEDS: morphine 2 MG INJ IV ×2 (05:45→09:16)
[2017-11-23 07:46] LABS: ADD MAN DIFF? NO
[2017-11-23 07:48] LABS: BASOPHILS % 0.1 % (0.0-2.0); EOSINOPHILS # 0.2 10^3/ul (0.0-0.5); EOSINOPHILS % 1.4 % (0.0-7.0); HEMATOCRIT 24.8 % (42.0-52.0); HEMOGLOBIN 8.1 g/dl (14.0-18.0); LYMPHOCYTES # 2.1 10^3/ul (0.8-2.9); LYMPHOCYTES % 14.3 % (15.0-51.0); MEAN CORPUSCULAR HGB CONC 32.7 g/dl (32.0-37.0); MEAN CORPUSCULAR VOLUME 82.7 fl (82.0-101.0); MEAN PLATELET VOLUME 10.4 fl (7.4-10.4); MONOCYTE # 1.1 10^3/ul (0.3-0.9); MONOCYTES % 7.4 % (0.0-11.0); NEUTROPHIL # 11.3 10^3/ul (1.6-7.5); NEUTROPHILS % 75.5 % (39.0-77.0); NUCLEATED RED BLOOD CELLS% 0.1 /100WBC (0.0-0.0); PLATELET COUNT 382 10^3/UL (140-415); RED CELL DISTRIBUTION WIDTH 16.6 % (11.5-14.5)
[2017-11-23] MEDS: INSULIN GLARGINE [LANtus] 3 ML PEN SC (08:00)
[2017-11-23] MEDS: INSULIN ASPART [NOVOLOG] 3 ML PEN SC ×5 (08:00→21:45)
[2017-11-23 08:20] LABS: ANION GAP 14 (8-16); BLOOD UREA NITROGEN 67 mg/dl (7-20); CARBON DIOXIDE 22 mmol/L (21-31); CHLORIDE 107 mmol/L (97-110); CREATININE 2.93 mg/dl (0.61-1.24); POTASSIUM 3.9 mmol/L (3.5-5.1); SODIUM 139 mmol/L (135-144)
[2017-11-23] MEDS: SALMETEROL/FLUTICASONE 100/50 INHA INH ×2 (08:58→21:21)
[2017-11-23] MEDS: CITRIC ACID/SODIUM CITRATE 15 ML CUP PO ×3 (08:59→21:21)
[2017-11-23] MEDS: CLOPIDOGREL 75 MG TAB PO (08:59)
[2017-11-23] MEDS: GABAPENTIN 300 MG CAP PO ×3 (08:59→21:23)
[2017-11-23] MEDS: PANTOPRAZOLE (EC) 40 MG TAB PO (08:59)
[2017-11-23] MEDS: TAMSULOSIN (SR) 0.4 MG CAP PO (08:59)
[2017-11-23] MEDS: predniSONE 10 MG TAB PO (08:59)
[2017-11-23] MEDS: GUAIFENESIN/DM (SR) TAB PO (08:59)
[2017-11-23] MEDS: NIFEdipine (XL) 60 MG TAB PO (09:00)
[2017-11-23] MEDS: METOPROLOL 25 MG TAB PO ×2 (09:01→21:23)
[2017-11-23 09:07] LABS: GLUCOSE 44 mg/dl (70-220)
[2017-11-23] MEDS: LEVETIRACETAM 500 MG TAB PO ×2 (09:16→21:23)
[2017-11-23] MEDS: CEFEPIME 1GM/50 ML (PMX) 50 ML IVPB (15:58)
[2017-11-23] MEDS: MONTELUKAST 10 MG TAB PO (21:23)
[2017-11-23] MEDS: HYDROCODONE/APAP (5/325) TAB PO (23:14)
[2017-11-24] MEDS: ALBUTEROL/IPRATROPIUM (NEB) 3 ML AMP HHN ×5 (01:04→17:00)
[2017-11-24] MEDS: morphine 2 MG INJ IV ×2 (02:02→10:21)
[2017-11-24] MEDS: ACCU-CHEK XX (02:15)
[2017-11-24] MEDS: GABAPENTIN 300 MG CAP PO ×2 (08:22→12:18)
[2017-11-24] MEDS: PANTOPRAZOLE (EC) 40 MG TAB PO (08:22)
[2017-11-24] MEDS: GUAIFENESIN/DM (SR) TAB PO (08:22)
[2017-11-24] MEDS: TAMSULOSIN (SR) 0.4 MG CAP PO (08:22)
[2017-11-24] MEDS: NIFEdipine (XL) 60 MG TAB PO (08:23)
[2017-11-24] MEDS: predniSONE 10 MG TAB PO (08:23)
[2017-11-24] MEDS: CITRIC ACID/SODIUM CITRATE 15 ML CUP PO ×2 (08:23→12:18)
[2017-11-24] MEDS: LEVETIRACETAM 500 MG TAB PO (08:23)
[2017-11-24] MEDS: CLOPIDOGREL 75 MG TAB PO (08:23)
[2017-11-24] MEDS: METOPROLOL 25 MG TAB PO (08:25)
[2017-11-24] MEDS: SALMETEROL/FLUTICASONE 100/50 INHA INH (08:25)
[2017-11-24] MEDS: INSULIN GLARGINE [LANtus] 3 ML PEN SC (08:27)
[2017-11-24] MEDS: INSULIN ASPART [NOVOLOG] 3 ML PEN SC ×3 (08:29→17:25)
[2017-11-24 08:56] LABS: ADD MAN DIFF? NO
[2017-11-24 09:01] LABS: WHITE BLOOD COUNT 14.8 10^3/ul (4.8-10.8)
[2017-11-24 09:01] LABS: BASOPHILS % 0.1 % (0.0-2.0); EOSINOPHILS # 0.5 10^3/ul (0.0-0.5); EOSINOPHILS % 3.2 % (0.0-7.0); HEMATOCRIT 25.5 % (42.0-52.0); HEMOGLOBIN 8.2 g/dl (14.0-18.0); LYMPHOCYTES # 3.2 10^3/ul (0.8-2.9); LYMPHOCYTES % 21.5 % (15.0-51.0); MEAN CORPUSCULAR HEMOGLOBIN 27.1 pg (29.0-33.0); MEAN CORPUSCULAR HGB CONC 32.2 g/dl (32.0-37.0); MEAN CORPUSCULAR VOLUME 84.2 fl (82.0-101.0); MEAN PLATELET VOLUME 10.5 fl (7.4-10.4); MONOCYTE # 1.2 10^3/ul (0.3-0.9); MONOCYTES % 8.3 % (0.0-11.0); NEUTROPHIL # 9.7 10^3/ul (1.6-7.5); NEUTROPHILS % 65.8 % (39.0-77.0); NUCLEATED RED BLOOD CELLS% 0.1 /100WBC (0.0-0.0); PLATELET COUNT 416 10^3/UL (140-415); RED BLOOD COUNT 3.03 10^6/ul (4.70-6.10)
[2017-11-24 09:24] LABS: ANION GAP 15 (8-16); BLOOD UREA NITROGEN 66 mg/dl (7-20); CALCIUM 7.9 mg/dl (8.4-10.2); CARBON DIOXIDE 21 mmol/L (21-31); CHLORIDE 108 mmol/L (97-110); CREATININE 2.95 mg/dl (0.61-1.24); GLUCOSE 116 mg/dl (70-220); POTASSIUM 4.2 mmol/L (3.5-5.1); SODIUM 140 mmol/L (135-144)
[2017-11-24] MEDS: HYDROCODONE/APAP (5/325) TAB PO (12:18)
[2017-11-24] MEDS: CEFEPIME 1GM/50 ML (PMX) 50 ML IVPB (17:00)
== END 2017-11-24 19:40 | disposition home health service (06) | DRG 871 ==
LOC: E/R 10:46 → MS3 13:27 → MS4 23:02
PROVIDERS: Internal Medicine
PROC: 0W9930Z Drainage of Right Pleural Cavity with Drainage Device, Percutaneous Approach (ICD-10-PCS; principal; 2017-11-20)
DX: A41.9 Sepsis, unspecified organism (principal); J18.9 Pneumonia, unspecified organism; N17.9 Acute kidney failure, unspecified; J91.8 Pleural effusion in other conditions classified elsewhere; E87.2 Acidosis; E11.21 Type 2 diabetes mellitus with diabetic nephropathy; E11.649 Type 2 diabetes mellitus with hypoglycemia without coma; J44.0 Chronic obstructive pulmonary disease with (acute) lower respiratory infection; J44.1 Chronic obstructive pulmonary disease with (acute) exacerbation; E86.0 Dehydration; D63.1 Anemia in chronic kidney disease; G40.909 Epilepsy, unspecified, not intractable, without status epilepticus; I16.0 Hypertensive urgency; I12.9 Hypertensive chronic kidney disease with stage 1 through stage 4 chronic kidney disease, or unspecified chronic kidney disease; D47.3 Essential (hemorrhagic) thrombocythemia; N18.9 Chronic kidney disease, unspecified; N40.0 Benign prostatic hyperplasia without lower urinary tract symptoms; E55.9 Vitamin D deficiency, unspecified; E66.9 Obesity, unspecified; Z68.33 Body mass index [BMI] 33.0-33.9, adult; R65.20 Severe sepsis without septic shock; E78.5 Hyperlipidemia, unspecified; I25.119 Atherosclerotic heart disease of native coronary artery with unspecified angina pectoris; N28.1 Cyst of kidney, acquired; Z86.011 Personal history of benign neoplasm of the brain; Z98.890 Other specified postprocedural states; R09.02 Hypoxemia; I65.21 Occlusion and stenosis of right carotid artery; E11.22 Type 2 diabetes mellitus with diabetic chronic kidney disease; E87.5 Hyperkalemia
CPT/HCPCS: 36415; 36600; 70450; 71045; 71250; 74181; 76942; 80048; 80053; 80061; 82270; 82306; 82652; 82803; 82945; 82962; 83036; 83540; 83605; 83615; 83735; 84100; 84157; 84439; 84443; 84481; 84484; 85025; 85610; 85730; 87040; 87070; 87086; 87102; 87116; 87205; 87400; 89051; 93005; 93306; 94640; 94644; 96374; 96375; 97162; 99285-25

== ENCOUNTER 2018-07-16 04:07 | Inpatient (IN) | payer MEDICARE, OTHER ==
[2018-07-16] MEDS: SOD CHLORIDE 0.9% 500 ML IV (05:17)
[2018-07-16 05:47] LABS: ADD MAN DIFF? NO
[2018-07-16 05:48] LABS: WHITE BLOOD COUNT 8.9 10^3/ul (4.8-10.8)
[2018-07-16 05:48] LABS: ABNORMAL IP MESSAGE 1; BASOPHILS % 0.2 % (0.0-2.0); EOSINOPHILS # 0.1 10^3/ul (0.0-0.5); EOSINOPHILS % 1.1 % (0.0-7.0); HEMATOCRIT 29.2 % (42.0-52.0); HEMOGLOBIN 9.5 g/dl (14.0-18.0); LYMPHOCYTES # 0.7 10^3/ul (0.8-2.9); LYMPHOCYTES % 7.6 % (15.0-51.0); MEAN CORPUSCULAR HEMOGLOBIN 27.3 pg (29.0-33.0); MEAN CORPUSCULAR HGB CONC 32.5 g/dl (32.0-37.0); MEAN CORPUSCULAR VOLUME 83.9 fl (82.0-101.0); MEAN PLATELET VOLUME 10.8 fl (7.4-10.4); MONOCYTE # 0.5 10^3/ul (0.3-0.9); MONOCYTES % 5.7 % (0.0-11.0); NEUTROPHIL # 7.6 10^3/ul (1.6-7.5); NUCLEATED RED BLOOD CELLS% 0.4 /100WBC (0.0-0.0); PLATELET COUNT 269 10^3/UL (140-415); POSITIVE DIFF @See below; RED BLOOD COUNT 3.48 10^6/ul (4.70-6.10); RED CELL DISTRIBUTION WIDTH 16.7 % (11.5-14.5)
[2018-07-16 06:06] LABS: ALANINE AMINOTRANSFERASE 28 IU/L (13-69); ALBUMIN 2.5 g/dl (3.3-4.9); ALBUMIN/GLOBULIN RATIO 0.75; ALKALINE PHOSPHATASE 94 IU/L (42-121); ANION GAP 18 (5-13); ASPARTATE AMINO TRANSFERASE 36 IU/L (15-46); BLOOD UREA NITROGEN 98 mg/dl (7-20); CALCIUM 8.7 mg/dl (8.4-10.2); CARBON DIOXIDE 16 mmol/L (21-31); CHLORIDE 104 mmol/L (97-110); CREATININE 8.62 mg/dl (0.61-1.24); GLUCOSE 133 mg/dl (70-220); LIPASE 12 U/L (23-300); POTASSIUM 4.3 mmol/L (3.5-5.1); SODIUM 138 mmol/L (135-144); TOTAL PROTEIN 5.8 g/dl (6.1-8.1)
[2018-07-16] MEDS: morphine 2 MG INJ IV ×2 (06:57→09:57)
[2018-07-16] MEDS: ONDANSETRON 4 MG INJ IV (06:57)
[2018-07-16] MEDS ORDERED: PIPER-TAZO 2.25 GM (PMX) 50 ML IVPB (08:30)
[2018-07-16 08:56] LABS: ADD UMIC YES; UR AMORPHOUS CRYSTAL FEW /HPF (NONE SEEN); UR ASCORBIC ACID NEGATIVE (NEGATIVE); UR BACTERIA FEW /HPF (NONE SEEN); UR BILIRUBIN (Dip) NEGATIVE (NEGATIVE); UR BLOOD (Dip) 1+ mg/dL (NEGATIVE); UR CLARITY CLOUDY (CLEAR); UR COLOR YELLOW (YELLOW); UR GLUCOSE (Dip) 1+ mg/dL (NEGATIVE); UR KETONES (Dip) NEGATIVE (NEGATIVE); UR LEUKOCYTE ESTERASE (Dip) NEGATIVE Leu/ul (NEGATIVE); UR NITRITE (Dip) NEGATIVE (NEGATIVE); UR RBC 1 /HPF (0-5); UR SPECIFIC GRAVITY (Dip) 1.017 (1.003-1.030); UR SQUAMOUS EPITHELIAL CELL FEW /HPF (FEW); UR TOTAL PROTEIN (Dip) 3+ mg/dl (NEGATIVE); UR UROBILINOGEN (Dip) NEGATIVE (NEGATIVE); UR WBC 8 /HPF (0-5)
[2018-07-16] MEDS ORDERED: SOD CHLORIDE 0.9% 1,000 ML IV (09:01)
[2018-07-16] MEDS ORDERED: ALBUTEROL/IPRATROPIUM (NEB) 3 ML AMP HHN (09:30)
[2018-07-16] MEDS ORDERED: NACL 0.9% 3 ML SYG IV (09:30)
[2018-07-16 10:14] LABS: ANISOCYTOSIS 2+ (0-0); BAND NEUTROPHILS #M 2.4 10^3/ul (0.0-0.6); BAND NEUTROPHILS % (M) 28 % (0-4); BASOPHILS % (M) 1 % (0-2); BURR CELLS 2+ (0-0); EOSINOPHILS % (M) 2 % (0-7); GIANT THROMBO% (M) 1 % (0-0); LYMPHOCYTES #M 0.6 10^3/ul (0.8-2.9); LYMPHOCYTES % (M) 7 % (15-51); METAMYELOCYTES %M 1 % (0-0); MONOCYTE #M 0.4 10^3/ul (0.3-0.9); MONOCYTES % (M) 5 % (0-11); PLATELET ESTIMATE NORMAL; POIKILOCYTOSIS 3+ (0-0); POLYCHROMASIA 3+ (0-0); REACTIVE LYMPHOCYTES% (M) 1 % (0-0); SEG NEUT #M 5.1 10^3/ul (1.6-7.5); SEGMENTED NEUTROPHILS (M) % 55 % (39-77); SMUDGE%M 4 % (0-0); TOXIC GRANULATION 1+ (0-0)
[2018-07-16] MEDS ORDERED: DEXTROSE 50% 50 ML SYRINGE IV ×2 (11:00)
[2018-07-16] MEDS ORDERED: GLUCOSE GEL 15 GRAM TUBE BUCCAL (11:00)
[2018-07-16] MEDS ORDERED: GLUCAGON 1 MG INJ IM (11:00)
[2018-07-16] MEDS ORDERED: GLUCOSE GEL 15 GRAM TUBE PO ×2 (11:00)
[2018-07-16 11:29] LABS: LACTIC ACID 1.5 mmol/L (0.5-2.0)
[2018-07-16] MEDS: NIFEdipine (XL) 60 MG TAB PO (11:33)
[2018-07-16] MEDS: METOPROLOL 25 MG TAB PO ×2 (11:33→20:39)
[2018-07-16] MEDS: metroNIDAZOLE 500 MG/NS (PMX) 100 ML IVPB ×2 (11:33→20:37)
[2018-07-16] MEDS: CLOPIDOGREL 75 MG TAB PO (11:33)
[2018-07-16] MEDS: LEVETIRACETAM 500 MG TAB PO ×2 (11:33→20:39)
[2018-07-16] MEDS: SOD CHLORIDE 0.9% 1,000 ML IV (11:34)
[2018-07-16] MEDS: PANTOPRAZOLE (EC) 40 MG TAB PO (11:38)
[2018-07-16] MEDS: INSULIN ASPART [NOVOLOG] 3 ML PEN SC ×3 (12:08→20:40)
[2018-07-16] MEDS: PIPER-TAZO 2.25 GM (PMX) 50 ML IVPB ×2 (13:10→21:52)
[2018-07-16] MEDS: ALBUMIN HUMAN 25% 100 ML IV ×2 (14:57→20:39)
[2018-07-16] MEDS: SUCRALFATE (100 MG/ML) 10ML CUP PO ×2 (15:03→18:00)
[2018-07-16] MEDS: HYDROCODONE/APAP (5/325) TAB PO (15:45)
[2018-07-16 17:02] LABS: ALBUMIN 2.7 g/dl (3.3-4.9); ANION GAP 19 (5-13); BLOOD UREA NITROGEN 108 mg/dl (7-20); CALCIUM 8.7 mg/dl (8.4-10.2); CARBON DIOXIDE 16 mmol/L (21-31); CHLORIDE 103 mmol/L (97-110); CREATININE 8.84 mg/dl (0.61-1.24); GLUCOSE 139 mg/dl (70-220); PHOSPHORUS 7.2 mg/dl (2.5-4.9); POTASSIUM 4.6 mmol/L (3.5-5.1); SODIUM 138 mmol/L (135-144)
[2018-07-16] MEDS ORDERED: METOCLOPRAMIDE 10 MG INJ IV (18:00)
[2018-07-16] MEDS: SODIUM BICARBONATE (IV ADD) 100 MEQ in DEXTROSE 5% 900 ML IV (20:37)
[2018-07-16] MEDS: MONTELUKAST 10 MG TAB PO (20:40)
[2018-07-16] MEDS ORDERED: INSULIN GLARGINE [LANTus] (100 UNITS/ML) SYG SC (21:00)
[2018-07-16] MEDS: ALBUTEROL/IPRATROPIUM (NEB) 3 ML AMP HHN (21:09)
[2018-07-17] MEDS: ACCU-CHEK XX (02:00)
[2018-07-17] MEDS: ALBUMIN HUMAN 25% 100 ML IV ×3 (02:33→20:31)
[2018-07-17] MEDS: metroNIDAZOLE 500 MG/NS (PMX) 100 ML IVPB ×3 (03:16→20:31)
[2018-07-17] MEDS: PANTOPRAZOLE (EC) 40 MG TAB PO (06:00)
[2018-07-17] MEDS: SUCRALFATE (100 MG/ML) 10ML CUP PO ×4 (06:00→17:55)
[2018-07-17 06:34] LABS: WHITE BLOOD COUNT 11.6 10^3/ul (4.8-10.8)
[2018-07-17 06:34] LABS: ABNORMAL IP MESSAGE 1; HEMATOCRIT 22.5 % (42.0-52.0); HEMOGLOBIN 7.5 g/dl (14.0-18.0); MEAN CORPUSCULAR HEMOGLOBIN 26.8 pg (29.0-33.0); MEAN CORPUSCULAR HGB CONC 33.3 g/dl (32.0-37.0); MEAN CORPUSCULAR VOLUME 80.4 fl (82.0-101.0); MEAN PLATELET VOLUME 10.5 fl (7.4-10.4); NUCLEATED RED BLOOD CELLS% 0.3 /100WBC (0.0-0.0); PLATELET COUNT 228 10^3/UL (140-415); POSITIVE DIFF @See below; RED CELL DISTRIBUTION WIDTH 15.9 % (11.5-14.5)
[2018-07-17 06:43] LABS: ADD MAN DIFF? YES
[2018-07-17] MEDS: PIPER-TAZO 2.25 GM (PMX) 50 ML IVPB ×3 (06:55→21:32)
[2018-07-17 07:14] LABS: ALBUMIN/GLOBULIN RATIO 1.18; ANION GAP 19 (5-13); BILIRUBIN,TOTAL 0.1 mg/dl (0.2-1.3)
[2018-07-17 07:20] LABS: ALANINE AMINOTRANSFERASE 20 IU/L (13-69); ALBUMIN 3.2 g/dl (3.3-4.9); ALKALINE PHOSPHATASE 64 IU/L (42-121); ASPARTATE AMINO TRANSFERASE 25 IU/L (15-46); BILIRUBIN,INDIRECT 0.1 mg/dl (0-1.1); BLOOD UREA NITROGEN 117 mg/dl (7-20); CALCIUM 8.3 mg/dl (8.4-10.2); CARBON DIOXIDE 19 mmol/L (21-31); CHLORIDE 102 mmol/L (97-110); GLUCOSE 187 mg/dl (70-220); MAGNESIUM 1.9 mg/dl (1.7-2.5); POTASSIUM 4.3 mmol/L (3.5-5.1); SODIUM 140 mmol/L (135-144); TOTAL PROTEIN 5.9 g/dl (6.1-8.1)
[2018-07-17] MEDS: ALBUTEROL/IPRATROPIUM (NEB) 3 ML AMP HHN ×4 (08:09→20:08)
[2018-07-17] MEDS: SODIUM BICARBONATE (IV ADD) 100 MEQ in DEXTROSE 5% 900 ML IV ×3 (08:20→21:40)
[2018-07-17 08:35] LABS: ANISOCYTOSIS 1+ (0-0); BAND NEUTROPHILS #M 1.7 10^3/ul (0.0-0.6); BAND NEUTROPHILS % (M) 15 % (0-4); BURR CELLS 2+ (0-0); EOSINOPHILS % (M) 1 % (0-7); LYMPHOCYTES #M 0.4 10^3/ul (0.8-2.9); LYMPHOCYTES % (M) 4 % (15-51); MONOCYTE #M 0.2 10^3/ul (0.3-0.9); MONOCYTES % (M) 2 % (0-11); OVALOCYTES 1+ (0-0); PLATELET ESTIMATE NORMAL; POIKILOCYTOSIS 3+ (0-0); POLYCHROMASIA 1+ (0-0); PROMYELOCYTES #M 0.1 10^3/ul (0-0); PROMYELOCYTES % (M) 1 % (0-0); SEG NEUT #M 9.1 10^3/ul (1.6-7.5); SEGMENTED NEUTROPHILS (M) % 77 % (39-77); SMUDGE%M 4 % (0-0); TARGET CELLS 1+ (0-0)
[2018-07-17] MEDS ORDERED: VANCOMYCIN IV PER PHARMACY XX (09:00)
[2018-07-17] MEDS: TAMSULOSIN (SR) 0.4 MG CAP PO (09:00)
[2018-07-17] MEDS ORDERED: PANTOPRAZOLE 40 MG INJ IV (09:00)
[2018-07-17] MEDS: CLOPIDOGREL 75 MG TAB PO (09:00)
[2018-07-17] MEDS: METOPROLOL 25 MG TAB PO ×2 (09:00→21:00)
[2018-07-17] MEDS: NIFEdipine (XL) 60 MG TAB PO (09:00)
[2018-07-17 09:21] LABS: HEMOGLOBIN A1C 5.9 % (0-5.9)
[2018-07-17] MEDS: LEVETIRACETAM 500 MG (PMX) 100 ML IVPB ×2 (09:47→20:26)
[2018-07-17] MEDS ORDERED: ACETAMINOPHEN (10 MG/ML) IV SYG IV* (10:00)
[2018-07-17] MEDS: PANTOPRAZOLE IV 80 MG in SOD CHLORIDE 0.9% 100 ML IVPB (10:06)
[2018-07-17] MEDS: PANTOPRAZOLE IV 80 MG in SOD CHLORIDE 0.9% 100 ML IV ×2 (10:24→20:25)
[2018-07-17] MEDS: ACETAMINOPHEN 1000MG/100ML IV 65 ML IVPB (11:07)
[2018-07-17] MEDS: VANCOMYCIN 2 GM in SOD CHLORIDE 0.9% 500 ML IVPB (11:31)
[2018-07-17] MEDS ORDERED: INSULIN ASPART [NOVOLOG] 3 ML PEN SC (12:00)
[2018-07-17] MEDS: SOD CHLORIDE 0.9% 250 ML IV* (12:05)
[2018-07-17 12:16] LABS: HEMATOCRIT 21.6 % (42.0-52.0); HEMOGLOBIN 7.3 g/dl (14.0-18.0)
[2018-07-17] MEDS ORDERED: SODIUM CHLORIDE 0.9% 1L BAG IV (12:30)
[2018-07-17] MEDS ORDERED: MANNITOL 25% 50 ML IV (12:30)
[2018-07-17] MEDS: INSULIN ASPART [NOVOLOG] 3 ML PEN SC ×3 (13:15→21:27)
[2018-07-17 13:43] LABS: HEMATOCRIT 20.9 % (42.0-52.0)
[2018-07-17 13:46] LABS: PLATELET COUNT 208 10^3/UL (140-415)
[2018-07-17 13:47] LABS: HEPATITIS B SURFACE ANTIGEN NEGATIVE (NEGATIVE)
[2018-07-17 14:05] LABS: HEPATITIS B SURFACE ANTIBODY NEGATIVE (NEGATIVE)
[2018-07-17 14:07] LABS: INR 1.72; PROTIME 20.5 Sec (11.9-14.9); PT RATIO 1.6; THROMBIN TIME 15.4 SEC (13.8-19.1)
[2018-07-17 14:08] LABS: PARTIAL THROMBOPLASTIN TIME 44.7 Sec (23.0-35.0)
[2018-07-17 15:36] LABS: IMMEDIATE SPIN CROSSMATCH 1 1
[2018-07-17] MEDS: HEPARIN 1000 UNITS/ML 10 ML INJ CATHETER (17:00)
[2018-07-17] MEDS: MONTELUKAST 10 MG TAB PO (21:00)
[2018-07-18 00:36] LABS: HEMATOCRIT 21.9 % (42.0-52.0); HEMOGLOBIN 7.5 g/dl (14.0-18.0)
[2018-07-18] MEDS: ACETAMINOPHEN 1000MG/100ML IV 65 ML IVPB ×2 (01:05→09:09)
[2018-07-18] MEDS: INSULIN ASPART [NOVOLOG] 3 ML PEN SC ×6 (01:39→20:42)
[2018-07-18] MEDS: ACCU-CHEK XX (02:00)
[2018-07-18 05:12] LABS: ADD MAN DIFF? NO; HAAIG REFLEX REFLEX FILED
[2018-07-18] MEDS: SUCRALFATE (100 MG/ML) 10ML CUP PO ×5 (05:12→20:41)
[2018-07-18] MEDS: PIPER-TAZO 2.25 GM (PMX) 50 ML IVPB ×3 (05:18→21:43)
[2018-07-18 05:19] LABS: WHITE BLOOD COUNT 12.5 10^3/ul (4.8-10.8)
[2018-07-18 05:19] LABS: BASOPHILS % 0.2 % (0.0-2.0); EOSINOPHILS # 0.1 10^3/ul (0.0-0.5); EOSINOPHILS % 1.1 % (0.0-7.0); HEMATOCRIT 23.3 % (42.0-52.0); HEMOGLOBIN 7.9 g/dl (14.0-18.0); LYMPHOCYTES % 7.8 % (15.0-51.0); MEAN CORPUSCULAR HEMOGLOBIN 27.1 pg (29.0-33.0); MEAN CORPUSCULAR HGB CONC 33.9 g/dl (32.0-37.0); MEAN CORPUSCULAR VOLUME 80.1 fl (82.0-101.0); MONOCYTE # 0.8 10^3/ul (0.3-0.9); MONOCYTES % 6.2 % (0.0-11.0); NEUTROPHIL # 10.5 10^3/ul (1.6-7.5); NEUTROPHILS % 84.1 % (39.0-77.0); PLATELET COUNT 184 10^3/UL (140-415); POSITIVE DIFF @See below; RED BLOOD COUNT 2.91 10^6/ul (4.70-6.10); RED CELL DISTRIBUTION WIDTH 15.8 % (11.5-14.5)
[2018-07-18] MEDS: metroNIDAZOLE 500 MG/NS (PMX) 100 ML IVPB ×3 (05:19→20:41)
[2018-07-18] MEDS: ALBUMIN HUMAN 25% 100 ML IV (05:22)
[2018-07-18 05:52] LABS: ANION GAP 15 (5-13); BLOOD UREA NITROGEN 77 mg/dl (7-20); CALCIUM 8.5 mg/dl (8.4-10.2); CARBON DIOXIDE 26 mmol/L (21-31); CHLORIDE 100 mmol/L (97-110); CREATININE 5.82 mg/dl (0.61-1.24); GLUCOSE 143 mg/dl (70-220); MAGNESIUM 1.9 mg/dl (1.7-2.5); PHOSPHORUS 5.3 mg/dl (2.5-4.9); POTASSIUM 3.8 mmol/L (3.5-5.1); SODIUM 141 mmol/L (135-144)
[2018-07-18] MEDS ORDERED: PANTOPRAZOLE 40 MG INJ IV (06:00)
[2018-07-18] MEDS: SODIUM BICARBONATE (IV ADD) 100 MEQ in DEXTROSE 5% 900 ML IV ×2 (06:11→20:31)
[2018-07-18 06:20] LABS: HEPATITIS B SURFACE ANTIGEN NEGATIVE (NEGATIVE)
[2018-07-18 06:38] LABS: HEPATITIS B CORE ANTIBODY NEGATIVE (NEGATIVE); HEPATITIS C VIRAL ANTIBODY NEGATIVE (NEGATIVE); HIV 1&2 ANTIBODY NEGATIVE (NEGATIVE)
[2018-07-18] MEDS: PANTOPRAZOLE IV 80 MG in SOD CHLORIDE 0.9% 100 ML IV ×2 (06:47→15:00)
[2018-07-18] MEDS: ALBUTEROL/IPRATROPIUM (NEB) 3 ML AMP HHN ×3 (09:00→19:38)
[2018-07-18] MEDS: METOPROLOL 25 MG TAB PO ×2 (09:00→20:42)
[2018-07-18] MEDS: NIFEdipine (XL) 60 MG TAB PO (09:00)
[2018-07-18] MEDS: TAMSULOSIN (SR) 0.4 MG CAP PO (09:00)
[2018-07-18] MEDS: LEVETIRACETAM 500 MG (PMX) 100 ML IVPB ×2 (09:09→20:41)
[2018-07-18 09:47] LABS: ANISOCYTOSIS 1+ (0-0); BAND NEUTROPHILS #M 1.3 10^3/ul (0.0-0.6); BAND NEUTROPHILS % (M) 11 % (0-4); BURR CELLS 1+ (0-0); EOSINOPHILS % (M) 2 % (0-7); GIANT THROMBO% (M) 1 % (0-0); LYMPHOCYTES #M 1.7 10^3/ul (0.8-2.9); LYMPHOCYTES % (M) 14 % (15-51); MONOCYTE #M 0.3 10^3/ul (0.3-0.9); MONOCYTES % (M) 3 % (0-11); OVALOCYTES 1+ (0-0); PLATELET ESTIMATE NORMAL; POIKILOCYTOSIS 3+ (0-0); POLYCHROMASIA 1+ (0-0); REACTIVE LYMPHOCYTES #M 0.5 10^3/ul (0.0-0.0); REACTIVE LYMPHOCYTES% (M) 4 % (0-0); SCHISTOCYTES 1+ (0-0); SEG NEUT #M 8.4 10^3/ul (1.6-7.5); SEGMENTED NEUTROPHILS (M) % 66 % (39-77); SMUDGE%M 3 % (0-0)
[2018-07-18] MEDS: HEPARIN 1000 UNITS/ML 10 ML INJ CATHETER (12:40)
[2018-07-18] MEDS: morphine 2 MG INJ IV ×2 (14:00→18:41)
[2018-07-18] MEDS: LIDOCAINE 1% (MPF) 5 ML VIAL (15:19)
[2018-07-18] MEDS: MONTELUKAST 10 MG TAB PO (20:42)
[2018-07-18] MEDS: HYDROCODONE/APAP (5/325) TAB PO (20:50)
[2018-07-18] MEDS: HALOPERIDOL 5 MG INJ IV (22:05)
[2018-07-19] MEDS: ACCU-CHEK XX (02:00)
[2018-07-19] MEDS: PANTOPRAZOLE IV 80 MG in SOD CHLORIDE 0.9% 100 ML IV ×4 (04:00→23:32)
[2018-07-19] MEDS: INSULIN ASPART [NOVOLOG] 3 ML PEN SC ×6 (04:00→20:34)
[2018-07-19] MEDS: PIPER-TAZO 2.25 GM (PMX) 50 ML IVPB ×3 (06:27→21:08)
[2018-07-19] MEDS: SUCRALFATE (100 MG/ML) 10ML CUP PO ×3 (06:27→17:47)
[2018-07-19] MEDS: metroNIDAZOLE 500 MG/NS (PMX) 100 ML IVPB ×2 (06:27→12:43)
[2018-07-19 07:06] LABS: ADD MAN DIFF? NO
[2018-07-19 07:14] LABS: WHITE BLOOD COUNT 15.3 10^3/ul (4.8-10.8)
[2018-07-19 07:14] LABS: BASOPHILS % 0.2 % (0.0-2.0); EOSINOPHILS # 0.2 10^3/ul (0.0-0.5); EOSINOPHILS % 1.2 % (0.0-7.0); HEMATOCRIT 26.7 % (42.0-52.0); HEMOGLOBIN 8.8 g/dl (14.0-18.0); LYMPHOCYTES % 6.6 % (15.0-51.0); MEAN CORPUSCULAR HEMOGLOBIN 27.4 pg (29.0-33.0); MEAN CORPUSCULAR VOLUME 83.2 fl (82.0-101.0); MEAN PLATELET VOLUME 10.7 fl (7.4-10.4); MONOCYTES % 6.3 % (0.0-11.0); NEUTROPHIL # 12.9 10^3/ul (1.6-7.5); NEUTROPHILS % 84.1 % (39.0-77.0); PLATELET COUNT 226 10^3/UL (140-415); RED BLOOD COUNT 3.21 10^6/ul (4.70-6.10); RED CELL DISTRIBUTION WIDTH 15.9 % (11.5-14.5)
[2018-07-19 07:56] LABS: ALBUMIN 3.1 g/dl (3.3-4.9); ANION GAP 12 (5-13); BLOOD UREA NITROGEN 39 mg/dl (7-20); CARBON DIOXIDE 30 mmol/L (21-31); CHLORIDE 99 mmol/L (97-110); CREATININE 4.29 mg/dl (0.61-1.24); GLUCOSE 129 mg/dl (70-220); MAGNESIUM 1.9 mg/dl (1.7-2.5); PHOSPHORUS 3.9 mg/dl (2.5-4.9); POTASSIUM 3.3 mmol/L (3.5-5.1); SODIUM 141 mmol/L (135-144)
[2018-07-19 07:59] LABS: VANCOMYCIN,RANDOM 11.8 ug/ml
[2018-07-19] MEDS: morphine 2 MG INJ IV ×2 (08:41→20:38)
[2018-07-19] MEDS: ONDANSETRON 4 MG INJ IV (08:41)
[2018-07-19] MEDS: METOPROLOL 25 MG TAB PO ×2 (08:42→21:08)
[2018-07-19] MEDS: TAMSULOSIN (SR) 0.4 MG CAP PO (08:42)
[2018-07-19] MEDS: NIFEdipine (XL) 60 MG TAB PO (08:43)
[2018-07-19] MEDS: LEVETIRACETAM 500 MG (PMX) 100 ML IVPB ×2 (08:43→20:25)
[2018-07-19] MEDS: ALBUTEROL/IPRATROPIUM (NEB) 3 ML AMP HHN ×3 (09:06→19:44)
[2018-07-19] MEDS: POTASSIUM CHLORIDE 100 ML IVPB ×2 (09:40→12:30)
[2018-07-19] MEDS: DEXTROSE 5%-0.45% NACL 1,000 ML IV (12:43)
[2018-07-19] MEDS ORDERED: VANCOMYCIN 1.25 GM in SOD CHLORIDE 0.9% 250 ML IVPB (16:00)
[2018-07-19] MEDS: DIATR MEGLU/DIATRIZOATE SODIUM 120 ML BTL (19:00)
[2018-07-19] MEDS: MONTELUKAST 10 MG TAB PO (21:08)
[2018-07-20] MEDS: INSULIN ASPART [NOVOLOG] 3 ML PEN SC ×6 (00:54→22:47)
[2018-07-20] MEDS: SUCRALFATE (100 MG/ML) 10ML CUP PO ×4 (00:55→17:40)
[2018-07-20] MEDS: ACCU-CHEK XX (01:03)
[2018-07-20] MEDS: HALOPERIDOL 5 MG INJ IV (01:39)
[2018-07-20 05:00] LABS: ADD MAN DIFF? NO
[2018-07-20 05:04] LABS: BASOPHILS % 0.2 % (0.0-2.0); EOSINOPHILS # 0.3 10^3/ul (0.0-0.5); EOSINOPHILS % 1.7 % (0.0-7.0); HEMOGLOBIN 8.9 g/dl (14.0-18.0); LYMPHOCYTES # 1.1 10^3/ul (0.8-2.9); LYMPHOCYTES % 6.5 % (15.0-51.0); MEAN CORPUSCULAR HEMOGLOBIN 27.2 pg (29.0-33.0); MEAN CORPUSCULAR HGB CONC 31.8 g/dl (32.0-37.0); MEAN CORPUSCULAR VOLUME 85.6 fl (82.0-101.0); MEAN PLATELET VOLUME 10.6 fl (7.4-10.4); MONOCYTE # 1.2 10^3/ul (0.3-0.9); MONOCYTES % 7.5 % (0.0-11.0); NEUTROPHIL # 13.6 10^3/ul (1.6-7.5); NEUTROPHILS % 82.6 % (39.0-77.0); PLATELET COUNT 244 10^3/UL (140-415); RED BLOOD COUNT 3.27 10^6/ul (4.70-6.10); RED CELL DISTRIBUTION WIDTH 16.3 % (11.5-14.5)
[2018-07-20 05:04] LABS: WHITE BLOOD COUNT 16.5 10^3/ul (4.8-10.8)
[2018-07-20 05:27] LABS: ALBUMIN 3.1 g/dl (3.3-4.9); ANION GAP 14 (5-13); BLOOD UREA NITROGEN 51 mg/dl (7-20); CALCIUM 8.4 mg/dl (8.4-10.2); CARBON DIOXIDE 28 mmol/L (21-31); CHLORIDE 101 mmol/L (97-110); CREATININE 6.31 mg/dl (0.61-1.24); GLUCOSE 133 mg/dl (70-220); PHOSPHORUS 5.2 mg/dl (2.5-4.9); POTASSIUM 3.6 mmol/L (3.5-5.1); SODIUM 143 mmol/L (135-144)
[2018-07-20] MEDS: PIPER-TAZO 2.25 GM (PMX) 50 ML IVPB ×3 (06:17→22:53)
[2018-07-20] MEDS: ALBUTEROL/IPRATROPIUM (NEB) 3 ML AMP HHN ×3 (08:24→20:30)
[2018-07-20] MEDS: DEXTROSE 5%-0.45% NACL 1,000 ML IV (08:54)
[2018-07-20] MEDS: LEVETIRACETAM 500 MG (PMX) 100 ML IVPB ×2 (08:55→22:45)
[2018-07-20] MEDS: PANTOPRAZOLE 40 MG INJ IV ×2 (08:58→17:40)
[2018-07-20] MEDS: NIFEdipine (XL) 60 MG TAB PO (08:59)
[2018-07-20] MEDS: TAMSULOSIN (SR) 0.4 MG CAP PO (08:59)
[2018-07-20] MEDS: METOPROLOL 25 MG TAB PO ×2 (08:59→22:45)
[2018-07-20] MEDS: ALBUMIN HUMAN 25% 100 ML IV (10:08)
[2018-07-20] MEDS: POTASSIUM CHLORIDE 20 MEQ POWDER FOR ORAL SOLN NGT (13:22)
[2018-07-20] MEDS: LACTOBACILLUS RHAMNOSUS CAP PO ×2 (13:22→22:45)
[2018-07-20] MEDS: MAGNESIUM SULFATE 1 GM/D5W 100 ML IVPB (13:24)
[2018-07-20] MEDS: HEPARIN 1000 UNITS/ML 10 ML INJ CATHETER (13:34)
[2018-07-20] MEDS: AMIODARONE 150MG/D5W BOLUS 100 ML IV (13:43)
[2018-07-20] MEDS: AMIODARONE 900 MG in DEXTROSE 5% 482 ML IV (14:05)
[2018-07-20] MEDS: MONTELUKAST 10 MG TAB PO (22:45)
[2018-07-21] MEDS: SUCRALFATE (100 MG/ML) 10ML CUP PO ×4 (00:56→17:37)
[2018-07-21] MEDS: INSULIN ASPART [NOVOLOG] 3 ML PEN SC ×4 (00:58→21:30)
[2018-07-21] MEDS: ACCU-CHEK XX (01:03)
[2018-07-21] MEDS: DEXTROSE 5%-0.45% NACL 1,000 ML IV ×2 (04:30→05:47)
[2018-07-21 05:15] LABS: ADD MAN DIFF? NO
[2018-07-21 05:24] LABS: WHITE BLOOD COUNT 13.6 10^3/ul (4.8-10.8)
[2018-07-21 05:24] LABS: BASOPHILS % 0.2 % (0.0-2.0); EOSINOPHILS # 0.5 10^3/ul (0.0-0.5); EOSINOPHILS % 3.5 % (0.0-7.0); HEMOGLOBIN 8.5 g/dl (14.0-18.0); LYMPHOCYTES % 7.4 % (15.0-51.0); MEAN CORPUSCULAR HEMOGLOBIN 27.9 pg (29.0-33.0); MEAN CORPUSCULAR HGB CONC 32.7 g/dl (32.0-37.0); MEAN CORPUSCULAR VOLUME 85.2 fl (82.0-101.0); MEAN PLATELET VOLUME 10.7 fl (7.4-10.4); MONOCYTE # 1.1 10^3/ul (0.3-0.9); MONOCYTES % 7.8 % (0.0-11.0); NEUTROPHIL # 10.9 10^3/ul (1.6-7.5); NEUTROPHILS % 79.9 % (39.0-77.0); PLATELET COUNT 257 10^3/UL (140-415); RED BLOOD COUNT 3.05 10^6/ul (4.70-6.10)
[2018-07-21] MEDS: PIPER-TAZO 2.25 GM (PMX) 50 ML IVPB ×3 (05:46→21:33)
[2018-07-21] MEDS: PANTOPRAZOLE 40 MG INJ IV ×2 (05:47→17:37)
[2018-07-21 05:50] LABS: ANION GAP 12 (5-13); BLOOD UREA NITROGEN 33 mg/dl (7-20); CALCIUM 8.2 mg/dl (8.4-10.2); CARBON DIOXIDE 24 mmol/L (21-31); CHLORIDE 102 mmol/L (97-110); CREATININE 4.79 mg/dl (0.61-1.24); GLUCOSE 151 mg/dl (70-220); MAGNESIUM 2.1 mg/dl (1.7-2.5); PHOSPHORUS 4.1 mg/dl (2.5-4.9); SODIUM 138 mmol/L (135-144)
[2018-07-21] MEDS: ALBUTEROL/IPRATROPIUM (NEB) 3 ML AMP HHN ×3 (08:16→20:20)
[2018-07-21] MEDS: LEVETIRACETAM 500 MG (PMX) 100 ML IVPB ×2 (08:23→23:15)
[2018-07-21] MEDS: LACTOBACILLUS RHAMNOSUS CAP PO ×2 (08:23→23:15)
[2018-07-21] MEDS: METOPROLOL 25 MG TAB PO ×2 (08:24→20:45)
[2018-07-21] MEDS: TAMSULOSIN (SR) 0.4 MG CAP PO ×2 (08:25→11:44)
[2018-07-21] MEDS: ACETAMINOPHEN 325 MG TAB PO ×2 (08:26→15:11)
[2018-07-21] MEDS ORDERED: METHADONE (1 MG/1 ML PO SYG) ×2 (11:32→20:40)
[2018-07-21] MEDS: METHADONE (1 MG/1 ML PO SYG) PO ×2 (11:35→20:48)
[2018-07-21] MEDS: METHYLNALTREXONE 12 MG/0.6 ML VIAL SC (12:27)
[2018-07-21] MEDS: AMIODARONE 200 MG TAB PO ×2 (15:15→23:16)
[2018-07-21] MEDS: LABETALOL HCL 20MG INJ IV (15:17)
[2018-07-21] MEDS: hydrALAzine 20 MG INJ IV ×2 (18:34→23:17)
[2018-07-21] MEDS: MONTELUKAST 10 MG TAB PO (20:44)
[2018-07-21] MEDS: HYDROCODONE/APAP (5/325) TAB PO (21:19)
[2018-07-22] MEDS: SUCRALFATE (100 MG/ML) 10ML CUP PO ×4 (00:48→17:34)
[2018-07-22] MEDS: ACCU-CHEK XX (02:29)
[2018-07-22] MEDS: ACETAMINOPHEN 325 MG TAB PO ×3 (04:10→18:26)
[2018-07-22] MEDS: DEXTROSE 5%-0.45% NACL 1,000 ML IV (04:21)
[2018-07-22] MEDS: PANTOPRAZOLE 40 MG INJ IV ×2 (05:24→17:34)
[2018-07-22] MEDS: PIPER-TAZO 2.25 GM (PMX) 50 ML IVPB ×3 (05:24→22:41)
[2018-07-22] MEDS: INSULIN ASPART [NOVOLOG] 3 ML PEN SC (07:25)
[2018-07-22 08:19] LABS: ADD MAN DIFF? NO
[2018-07-22 08:24] LABS: WHITE BLOOD COUNT 11.4 10^3/ul (4.8-10.8)
[2018-07-22 08:24] LABS: BASOPHILS % 0.3 % (0.0-2.0); EOSINOPHILS # 0.6 10^3/ul (0.0-0.5); EOSINOPHILS % 5.3 % (0.0-7.0); HEMATOCRIT 25.9 % (42.0-52.0); HEMOGLOBIN 8.4 g/dl (14.0-18.0); LYMPHOCYTES # 1.1 10^3/ul (0.8-2.9); LYMPHOCYTES % 9.3 % (15.0-51.0); MEAN CORPUSCULAR HEMOGLOBIN 27.4 pg (29.0-33.0); MEAN CORPUSCULAR HGB CONC 32.4 g/dl (32.0-37.0); MEAN CORPUSCULAR VOLUME 84.4 fl (82.0-101.0); MEAN PLATELET VOLUME 10.6 fl (7.4-10.4); MONOCYTE # 0.9 10^3/ul (0.3-0.9); MONOCYTES % 8.3 % (0.0-11.0); NEUTROPHIL # 8.6 10^3/ul (1.6-7.5); NEUTROPHILS % 75.7 % (39.0-77.0); PLATELET COUNT 293 10^3/UL (140-415); RED BLOOD COUNT 3.07 10^6/ul (4.70-6.10); RED CELL DISTRIBUTION WIDTH 15.9 % (11.5-14.5)
[2018-07-22] MEDS: ALBUTEROL/IPRATROPIUM (NEB) 3 ML AMP HHN ×3 (08:25→20:42)
[2018-07-22 08:49] LABS: ANION GAP 13 (5-13); BLOOD UREA NITROGEN 42 mg/dl (7-20); CALCIUM 8.3 mg/dl (8.4-10.2); CARBON DIOXIDE 21 mmol/L (21-31); CHLORIDE 105 mmol/L (97-110); CREATININE 6.12 mg/dl (0.61-1.24); GLUCOSE 137 mg/dl (70-220); MAGNESIUM 2.2 mg/dl (1.7-2.5); PHOSPHORUS 5.6 mg/dl (2.5-4.9); POTASSIUM 3.7 mmol/L (3.5-5.1); SODIUM 139 mmol/L (135-144)
[2018-07-22] MEDS: hydrALAzine 20 MG INJ IV (09:17)
[2018-07-22] MEDS ORDERED: METHADONE (1 MG/1 ML PO SYG) ×2 (13:13→19:54)
[2018-07-22] MEDS: HEPARIN 1000 UNITS/ML 10 ML INJ CATHETER (13:13)
[2018-07-22] MEDS: METHADONE (1 MG/1 ML PO SYG) PO ×2 (13:20→20:31)
[2018-07-22] MEDS: METOPROLOL 25 MG TAB PO ×2 (13:21→20:27)
[2018-07-22] MEDS: AMIODARONE 200 MG TAB PO ×2 (13:22→20:28)
[2018-07-22] MEDS: TAMSULOSIN (SR) 0.4 MG CAP PO (13:22)
[2018-07-22] MEDS: NIFEdipine (XL) 60 MG TAB PO (13:23)
[2018-07-22] MEDS: LACTOBACILLUS RHAMNOSUS CAP PO ×2 (13:23→20:27)
[2018-07-22] MEDS: LEVETIRACETAM 500 MG (PMX) 100 ML IVPB ×2 (14:24→20:18)
[2018-07-22] MEDS ORDERED: INSULIN ASPART [NOVOLOG] 3 ML PEN SC (17:25)
[2018-07-22] MEDS: Insulin NOVOLOG SS MILD Algorithm (SS with meals and bedtime) SC ×2 (17:41→20:29)
[2018-07-22] MEDS: LOPERAMIDE HCL 1 MG/5 ML LIQUID (10 ML UD CUP) PO ×2 (18:00→20:28)
[2018-07-22] MEDS: MONTELUKAST 10 MG TAB PO (20:28)
[2018-07-22] MEDS: NYSTATIN 30 GM POWDER BTL TOP (20:29)
[2018-07-22] MEDS: BALSAM PERU/CASTOR OIL 60 GM TUBE TOP (20:29)
[2018-07-23] MEDS: ACCU-CHEK XX (01:46)
[2018-07-23] MEDS: SUCRALFATE (100 MG/ML) 10ML CUP PO ×5 (05:01→23:37)
[2018-07-23] MEDS: PANTOPRAZOLE 40 MG INJ IV ×2 (05:01→17:28)
[2018-07-23] MEDS: PIPER-TAZO 2.25 GM (PMX) 50 ML IVPB ×3 (05:01→21:41)
[2018-07-23 06:17] LABS: ADD MAN DIFF? NO
[2018-07-23 06:27] LABS: WHITE BLOOD COUNT 9.3 10^3/ul (4.8-10.8)
[2018-07-23 06:27] LABS: BASOPHILS % 0.3 % (0.0-2.0); EOSINOPHILS # 0.6 10^3/ul (0.0-0.5); EOSINOPHILS % 6.6 % (0.0-7.0); HEMATOCRIT 28.3 % (42.0-52.0); HEMOGLOBIN 9.1 g/dl (14.0-18.0); LYMPHOCYTES # 1.1 10^3/ul (0.8-2.9); LYMPHOCYTES % 11.4 % (15.0-51.0); MEAN CORPUSCULAR HEMOGLOBIN 27.2 pg (29.0-33.0); MEAN CORPUSCULAR HGB CONC 32.2 g/dl (32.0-37.0); MEAN CORPUSCULAR VOLUME 84.7 fl (82.0-101.0); MEAN PLATELET VOLUME 10.5 fl (7.4-10.4); MONOCYTE # 0.9 10^3/ul (0.3-0.9); MONOCYTES % 9.2 % (0.0-11.0); NEUTROPHIL # 6.6 10^3/ul (1.6-7.5); NEUTROPHILS % 71.2 % (39.0-77.0); PLATELET COUNT 348 10^3/UL (140-415); RED BLOOD COUNT 3.34 10^6/ul (4.70-6.10); RED CELL DISTRIBUTION WIDTH 15.5 % (11.5-14.5)
[2018-07-23 06:44] LABS: ALBUMIN 3.2 g/dl (3.3-4.9); ANION GAP 11 (5-13); BLOOD UREA NITROGEN 30 mg/dl (7-20); CALCIUM 8.6 mg/dl (8.4-10.2); CARBON DIOXIDE 24 mmol/L (21-31); CHLORIDE 104 mmol/L (97-110); CREATININE 4.84 mg/dl (0.61-1.24); GLUCOSE 167 mg/dl (70-220); POTASSIUM 3.7 mmol/L (3.5-5.1); SODIUM 139 mmol/L (135-144)
[2018-07-23] MEDS: Insulin NOVOLOG SS MILD Algorithm (SS with meals and bedtime) SC ×4 (08:07→21:00)
[2018-07-23] MEDS: ALBUTEROL/IPRATROPIUM (NEB) 3 ML AMP HHN ×3 (08:38→20:25)
[2018-07-23] MEDS: LEVETIRACETAM 500 MG (PMX) 100 ML IVPB ×2 (08:53→20:45)
[2018-07-23] MEDS: AMIODARONE 200 MG TAB PO ×2 (08:54→20:48)
[2018-07-23] MEDS: NIFEdipine (XL) 60 MG TAB PO (08:54)
[2018-07-23] MEDS: TAMSULOSIN (SR) 0.4 MG CAP PO (08:54)
[2018-07-23] MEDS: LOPERAMIDE HCL 1 MG/5 ML LIQUID (10 ML UD CUP) PO ×4 (08:54→20:46)
[2018-07-23] MEDS: LACTOBACILLUS RHAMNOSUS CAP PO ×2 (08:54→20:46)
[2018-07-23] MEDS: METOPROLOL 25 MG TAB PO ×2 (08:55→20:47)
[2018-07-23] MEDS: BALSAM PERU/CASTOR OIL 60 GM TUBE TOP ×2 (08:55→20:49)
[2018-07-23] MEDS: NYSTATIN 30 GM POWDER BTL TOP ×2 (08:55→20:49)
[2018-07-23] MEDS: METHADONE (1 MG/ML 5 ML PO UD SYG) PO ×2 (08:56→20:50)
[2018-07-23] MEDS: ACETAMINOPHEN 325 MG TAB PO ×2 (10:32→19:52)
[2018-07-23] MEDS: METHYLNALTREXONE 12 MG/0.6 ML VIAL SC (12:26)
[2018-07-23] MEDS: MONTELUKAST 10 MG TAB PO (20:53)
[2018-07-24] MEDS: ACCU-CHEK XX (01:03)
[2018-07-24] MEDS: SUCRALFATE (100 MG/ML) 10ML CUP PO ×4 (06:22→23:51)
[2018-07-24] MEDS: PANTOPRAZOLE 40 MG INJ IV ×2 (06:23→17:09)
[2018-07-24 06:41] LABS: ADD MAN DIFF? NO
[2018-07-24 06:42] LABS: WHITE BLOOD COUNT 8.4 10^3/ul (4.8-10.8)
[2018-07-24 06:42] LABS: BASOPHILS % 0.4 % (0.0-2.0); EOSINOPHILS # 0.6 10^3/ul (0.0-0.5); EOSINOPHILS % 7.4 % (0.0-7.0); HEMATOCRIT 26.3 % (42.0-52.0); HEMOGLOBIN 8.3 g/dl (14.0-18.0); LYMPHOCYTES # 1.4 10^3/ul (0.8-2.9); LYMPHOCYTES % 16.2 % (15.0-51.0); MEAN CORPUSCULAR HGB CONC 31.6 g/dl (32.0-37.0); MEAN CORPUSCULAR VOLUME 85.7 fl (82.0-101.0); MEAN PLATELET VOLUME 10.8 fl (7.4-10.4); MONOCYTE # 0.9 10^3/ul (0.3-0.9); MONOCYTES % 10.1 % (0.0-11.0); NEUTROPHIL # 5.5 10^3/ul (1.6-7.5); NEUTROPHILS % 65.1 % (39.0-77.0); PLATELET COUNT 351 10^3/UL (140-415); RED BLOOD COUNT 3.07 10^6/ul (4.70-6.10); RED CELL DISTRIBUTION WIDTH 15.6 % (11.5-14.5)
[2018-07-24 07:02] LABS: ALBUMIN 3.1 g/dl (3.3-4.9); ANION GAP 12 (5-13); BLOOD UREA NITROGEN 38 mg/dl (7-20); CALCIUM 8.6 mg/dl (8.4-10.2); CARBON DIOXIDE 22 mmol/L (21-31); CHLORIDE 106 mmol/L (97-110); CREATININE 6.74 mg/dl (0.61-1.24); GLUCOSE 130 mg/dl (70-220); MAGNESIUM 1.8 mg/dl (1.7-2.5); PHOSPHORUS 6.8 mg/dl (2.5-4.9); SODIUM 140 mmol/L (135-144)
[2018-07-24] MEDS: Insulin NOVOLOG SS MILD Algorithm (SS with meals and bedtime) SC ×4 (07:25→21:00)
[2018-07-24] MEDS: ALBUTEROL/IPRATROPIUM (NEB) 3 ML AMP HHN ×3 (08:29→20:00)
[2018-07-24] MEDS: NYSTATIN 30 GM POWDER BTL TOP ×2 (09:27→21:09)
[2018-07-24] MEDS: LEVETIRACETAM 500 MG (PMX) 100 ML IVPB ×2 (09:28→21:05)
[2018-07-24] MEDS: METHADONE (1 MG/ML 5 ML PO UD SYG) PO ×2 (09:28→21:06)
[2018-07-24] MEDS: LOPERAMIDE HCL 1 MG/5 ML LIQUID (10 ML UD CUP) PO (09:28)
[2018-07-24] MEDS: LACTOBACILLUS RHAMNOSUS CAP PO ×2 (09:29→21:07)
[2018-07-24] MEDS: AMIODARONE 200 MG TAB PO ×2 (09:29→21:48)
[2018-07-24] MEDS: BISACODYL (EC) 5 MG TAB PO ×2 (09:29→17:11)
[2018-07-24] MEDS: NIFEdipine (XL) 60 MG TAB PO (09:29)
[2018-07-24] MEDS: TAMSULOSIN (SR) 0.4 MG CAP PO (09:30)
[2018-07-24] MEDS: BALSAM PERU/CASTOR OIL 60 GM TUBE TOP ×2 (09:30→21:10)
[2018-07-24] MEDS: hydrALAzine 20 MG INJ IV ×2 (10:33→18:38)
[2018-07-24] MEDS: METOPROLOL 25 MG TAB PO ×3 (10:34→22:26)
[2018-07-24] MEDS: POLYETHYLENE GLYCOL 3350 119 GM POWDER PO ×2 (10:35→17:11)
[2018-07-24] MEDS: MAGNESIUM CITRATE 300 ML BTL PO (11:31)
[2018-07-24] MEDS: ACETAMINOPHEN 325 MG TAB PO (11:31)
[2018-07-24] MEDS: LABETALOL HCL 20MG INJ IV (14:31)
[2018-07-24] MEDS: NIFEdipine (XL) 30 MG TAB PO (17:10)
[2018-07-24] MEDS: MONTELUKAST 10 MG TAB PO (21:46)
[2018-07-25] MEDS: SUCRALFATE (100 MG/ML) 10ML CUP PO ×3 (05:55→18:23)
[2018-07-25] MEDS: PANTOPRAZOLE 40 MG INJ IV ×2 (05:55→18:23)
[2018-07-25 06:31] LABS: ADD MAN DIFF? NO
[2018-07-25 06:33] LABS: WHITE BLOOD COUNT 10.2 10^3/ul (4.8-10.8)
[2018-07-25 06:33] LABS: BASOPHIL # 0.1 10^3/ul (0.0-0.1); BASOPHILS % 0.5 % (0.0-2.0); EOSINOPHILS # 0.6 10^3/ul (0.0-0.5); EOSINOPHILS % 5.6 % (0.0-7.0); HEMATOCRIT 29.1 % (42.0-52.0); HEMOGLOBIN 9.1 g/dl (14.0-18.0); LYMPHOCYTES # 1.5 10^3/ul (0.8-2.9); LYMPHOCYTES % 14.2 % (15.0-51.0); MEAN CORPUSCULAR HGB CONC 31.3 g/dl (32.0-37.0); MEAN CORPUSCULAR VOLUME 86.4 fl (82.0-101.0); MONOCYTE # 0.8 10^3/ul (0.3-0.9); MONOCYTES % 7.3 % (0.0-11.0); NEUTROPHIL # 7.3 10^3/ul (1.6-7.5); NEUTROPHILS % 71.7 % (39.0-77.0); PLATELET COUNT 446 10^3/UL (140-415); RED BLOOD COUNT 3.37 10^6/ul (4.70-6.10); RED CELL DISTRIBUTION WIDTH 15.6 % (11.5-14.5)
[2018-07-25 07:03] LABS: ALBUMIN 3.3 g/dl (3.3-4.9); ANION GAP 17 (5-13); BLOOD UREA NITROGEN 43 mg/dl (7-20); CARBON DIOXIDE 19 mmol/L (21-31); CHLORIDE 107 mmol/L (97-110); CREATININE 8.13 mg/dl (0.61-1.24); GLUCOSE 123 mg/dl (70-220); MAGNESIUM 1.9 mg/dl (1.7-2.5); PHOSPHORUS 8.1 mg/dl (2.5-4.9); POTASSIUM 3.8 mmol/L (3.5-5.1); SODIUM 143 mmol/L (135-144)
[2018-07-25] MEDS: Insulin NOVOLOG SS MILD Algorithm (SS with meals and bedtime) SC ×4 (07:25→21:42)
[2018-07-25] MEDS: LEVETIRACETAM 500 MG (PMX) 100 ML IVPB ×2 (08:09→21:37)
[2018-07-25] MEDS: NYSTATIN 30 GM POWDER BTL TOP (08:15)
[2018-07-25] MEDS: BALSAM PERU/CASTOR OIL 60 GM TUBE TOP ×2 (08:15→21:39)
[2018-07-25] MEDS: LACTOBACILLUS RHAMNOSUS CAP PO ×2 (08:15→21:38)
[2018-07-25] MEDS: AMIODARONE 200 MG TAB PO ×2 (08:15→21:38)
[2018-07-25] MEDS: METOPROLOL 25 MG TAB PO ×3 (08:16→21:38)
[2018-07-25] MEDS: TAMSULOSIN (SR) 0.4 MG CAP PO (08:16)
[2018-07-25] MEDS: NIFEdipine (XL) 90 MG TAB PO ×2 (08:16→08:25)
[2018-07-25] MEDS: ALBUTEROL/IPRATROPIUM (NEB) 3 ML AMP HHN ×3 (08:19→21:15)
[2018-07-25] MEDS: METHADONE (1 MG/ML 5 ML PO UD SYG) PO ×2 (08:20→20:17)
[2018-07-25] MEDS ORDERED: NIFEdipine (XL) 60 MG TAB PO (09:00)
[2018-07-25] MEDS: SOD CHLORIDE 0.45% 1,000 ML IV (10:11)
[2018-07-25] MEDS: ALTEPLASE (CATHFLO) 2 MG INJ CATHETER (12:11)
[2018-07-25] MEDS: METHYLNALTREXONE 12 MG/0.6 ML VIAL SC (12:19)
[2018-07-25] MEDS: PROPOFOL 20 ML (17:20)
[2018-07-25] MEDS: hydrALAzine 20 MG INJ IV (17:21)
[2018-07-25] MEDS ORDERED: ONDANSETRON 4 MG INJ IV (17:30)
[2018-07-25] MEDS ORDERED: LABETALOL HCL 20MG INJ IV (17:30)
[2018-07-25] MEDS: FLUCONAZOLE 100 MG TAB PO (18:34)
[2018-07-25] MEDS: MONTELUKAST 10 MG TAB PO (21:37)
[2018-07-26] MEDS: SUCRALFATE (100 MG/ML) 10ML CUP PO ×5 (00:17→23:15)
[2018-07-26] MEDS: NYSTATIN 30 GM POWDER BTL TOP ×3 (03:24→20:31)
[2018-07-26] MEDS: SOD CHLORIDE 0.45% 1,000 ML IV (05:03)
[2018-07-26] MEDS: PANTOPRAZOLE 40 MG INJ IV ×2 (05:43→17:30)
[2018-07-26] MEDS: ALBUTEROL/IPRATROPIUM (NEB) 3 ML AMP HHN ×3 (07:43→20:15)
[2018-07-26] MEDS: LEVETIRACETAM 500 MG (PMX) 100 ML IVPB ×2 (08:10→20:29)
[2018-07-26] MEDS: Insulin NOVOLOG SS MILD Algorithm (SS with meals and bedtime) SC ×4 (08:13→22:04)
[2018-07-26] MEDS: BALSAM PERU/CASTOR OIL 60 GM TUBE TOP ×2 (08:16→20:31)
[2018-07-26] MEDS: METHADONE (1 MG/ML 5 ML PO UD SYG) PO ×2 (08:17→20:29)
[2018-07-26] MEDS: AMIODARONE 200 MG TAB PO (08:18)
[2018-07-26] MEDS: METOPROLOL 25 MG TAB PO ×2 (08:19→20:30)
[2018-07-26] MEDS: TAMSULOSIN (SR) 0.4 MG CAP PO (08:19)
[2018-07-26] MEDS: FLUCONAZOLE 100 MG TAB PO (08:19)
[2018-07-26] MEDS: NIFEdipine (XL) 90 MG TAB PO (08:19)
[2018-07-26] MEDS: LACTOBACILLUS RHAMNOSUS CAP PO ×2 (08:19→20:29)
[2018-07-26 08:35] LABS: ADD MAN DIFF? NO
[2018-07-26 08:36] LABS: BASOPHILS % 0.4 % (0.0-2.0); EOSINOPHILS # 0.4 10^3/ul (0.0-0.5); EOSINOPHILS % 3.8 % (0.0-7.0); HEMOGLOBIN 9.1 g/dl (14.0-18.0); LYMPHOCYTES # 1.2 10^3/ul (0.8-2.9); LYMPHOCYTES % 12.8 % (15.0-51.0); MEAN CORPUSCULAR HEMOGLOBIN 26.9 pg (29.0-33.0); MEAN CORPUSCULAR HGB CONC 31.4 g/dl (32.0-37.0); MEAN CORPUSCULAR VOLUME 85.8 fl (82.0-101.0); MEAN PLATELET VOLUME 10.5 fl (7.4-10.4); MONOCYTE # 0.8 10^3/ul (0.3-0.9); MONOCYTES % 8.7 % (0.0-11.0); NEUTROPHILS % 73.6 % (39.0-77.0); PLATELET COUNT 428 10^3/UL (140-415); RED BLOOD COUNT 3.38 10^6/ul (4.70-6.10); RED CELL DISTRIBUTION WIDTH 15.5 % (11.5-14.5)
[2018-07-26 08:36] LABS: WHITE BLOOD COUNT 9.6 10^3/ul (4.8-10.8)
[2018-07-26 09:01] LABS: ALBUMIN 3.5 g/dl (3.3-4.9); ANION GAP 13 (5-13); BLOOD UREA NITROGEN 30 mg/dl (7-20); CALCIUM 8.9 mg/dl (8.4-10.2); CARBON DIOXIDE 24 mmol/L (21-31); CHLORIDE 104 mmol/L (97-110); CREATININE 5.94 mg/dl (0.61-1.24); GLUCOSE 143 mg/dl (70-220); PHOSPHORUS 5.9 mg/dl (2.5-4.9); POTASSIUM 3.5 mmol/L (3.5-5.1); SODIUM 141 mmol/L (135-144)
[2018-07-26] MEDS: CIPROFLOXACIN 500 MG TAB GTB (12:14)
[2018-07-26] MEDS: metroNIDAZOLE 500 MG TAB PO ×2 (13:29→20:34)
[2018-07-26] MEDS: ACETAMINOPHEN 325 MG TAB PO (17:30)
[2018-07-26] MEDS: MONTELUKAST 10 MG TAB PO (20:29)
[2018-07-27] MEDS: SOD CHLORIDE 0.45% 1,000 ML IV ×2 (01:30→21:30)
[2018-07-27] MEDS: PANTOPRAZOLE 40 MG INJ IV ×2 (05:55→17:00)
[2018-07-27] MEDS: CIPROFLOXACIN 500 MG TAB GTB (05:55)
[2018-07-27] MEDS: SUCRALFATE (100 MG/ML) 10ML CUP PO ×3 (05:55→17:15)
[2018-07-27] MEDS: metroNIDAZOLE 500 MG TAB PO ×3 (05:55→20:28)
[2018-07-27 06:15] LABS: ADD MAN DIFF? NO
[2018-07-27 06:20] LABS: BASOPHIL # 0.1 10^3/ul (0.0-0.1); BASOPHILS % 0.8 % (0.0-2.0); EOSINOPHILS # 0.4 10^3/ul (0.0-0.5); EOSINOPHILS % 4.1 % (0.0-7.0); HEMATOCRIT 26.1 % (42.0-52.0); HEMOGLOBIN 8.4 g/dl (14.0-18.0); LYMPHOCYTES # 1.6 10^3/ul (0.8-2.9); LYMPHOCYTES % 16.3 % (15.0-51.0); MEAN CORPUSCULAR HEMOGLOBIN 27.4 pg (29.0-33.0); MEAN CORPUSCULAR HGB CONC 32.2 g/dl (32.0-37.0); MEAN PLATELET VOLUME 10.8 fl (7.4-10.4); MONOCYTE # 0.9 10^3/ul (0.3-0.9); MONOCYTES % 8.9 % (0.0-11.0); NEUTROPHIL # 6.6 10^3/ul (1.6-7.5); NEUTROPHILS % 69.4 % (39.0-77.0); PLATELET COUNT 439 10^3/UL (140-415); RED BLOOD COUNT 3.07 10^6/ul (4.70-6.10); RED CELL DISTRIBUTION WIDTH 14.9 % (11.5-14.5)
[2018-07-27 06:20] LABS: WHITE BLOOD COUNT 9.5 10^3/ul (4.8-10.8)
[2018-07-27 07:05] LABS: ALBUMIN 3.1 g/dl (3.3-4.9); ANION GAP 13 (5-13); BLOOD UREA NITROGEN 38 mg/dl (7-20); CALCIUM 8.3 mg/dl (8.4-10.2); CARBON DIOXIDE 19 mmol/L (21-31); CHLORIDE 105 mmol/L (97-110); CREATININE 7.03 mg/dl (0.61-1.24); GLUCOSE 153 mg/dl (70-220); MAGNESIUM 1.8 mg/dl (1.7-2.5); PHOSPHORUS 6.5 mg/dl (2.5-4.9); POTASSIUM 3.5 mmol/L (3.5-5.1); SODIUM 137 mmol/L (135-144)
[2018-07-27] MEDS: Insulin NOVOLOG SS MILD Algorithm (SS with meals and bedtime) SC ×4 (07:25→20:22)
[2018-07-27] MEDS: ALBUTEROL/IPRATROPIUM (NEB) 3 ML AMP HHN ×3 (08:12→20:06)
[2018-07-27] MEDS: NYSTATIN 30 GM POWDER BTL TOP ×2 (09:00→20:22)
[2018-07-27] MEDS: BALSAM PERU/CASTOR OIL 60 GM TUBE TOP ×2 (09:00→20:22)
[2018-07-27] MEDS: HEPARIN 1000 UNITS/ML 10 ML INJ CATHETER (11:43)
[2018-07-27] MEDS: DOXYCYCLINE 100 MG TAB PO ×2 (12:24→20:23)
[2018-07-27] MEDS: TAMSULOSIN (SR) 0.4 MG CAP PO (12:25)
[2018-07-27] MEDS: LACTOBACILLUS RHAMNOSUS CAP PO ×2 (12:25→20:22)
[2018-07-27] MEDS: METOPROLOL 25 MG TAB PO ×2 (12:25→20:23)
[2018-07-27] MEDS: NIFEdipine (XL) 90 MG TAB PO (12:26)
[2018-07-27] MEDS: AMIODARONE 200 MG TAB PO (12:26)
[2018-07-27] MEDS: FLUCONAZOLE 100 MG TAB PO (12:26)
[2018-07-27] MEDS: LEVETIRACETAM 500 MG (PMX) 100 ML IVPB ×2 (12:29→20:27)
[2018-07-27] MEDS: MESALAMINE (EC) 400 MG CAP PO (20:22)
[2018-07-27] MEDS: MONTELUKAST 10 MG TAB PO (20:22)
[2018-07-27] MEDS: ACYCLOVIR 400 MG TAB PO (20:22)
[2018-07-27] MEDS: ACETAMINOPHEN 325 MG TAB PO (20:51)
[2018-07-28] MEDS: SUCRALFATE (100 MG/ML) 10ML CUP PO ×4 (00:31→17:11)
[2018-07-28] MEDS: PANTOPRAZOLE 40 MG INJ IV ×2 (05:57→17:19)
[2018-07-28] MEDS: metroNIDAZOLE 500 MG TAB PO ×3 (05:57→22:18)
[2018-07-28 06:46] LABS: ADD MAN DIFF? NO
[2018-07-28 06:53] LABS: WHITE BLOOD COUNT 9.2 10^3/ul (4.8-10.8)
[2018-07-28 06:53] LABS: BASOPHIL # 0.1 10^3/ul (0.0-0.1); BASOPHILS % 1.1 % (0.0-2.0); EOSINOPHILS # 0.3 10^3/ul (0.0-0.5); EOSINOPHILS % 2.7 % (0.0-7.0); HEMATOCRIT 26.7 % (42.0-52.0); HEMOGLOBIN 8.6 g/dl (14.0-18.0); LYMPHOCYTES # 1.8 10^3/ul (0.8-2.9); LYMPHOCYTES % 19.4 % (15.0-51.0); MEAN CORPUSCULAR HEMOGLOBIN 27.2 pg (29.0-33.0); MEAN CORPUSCULAR HGB CONC 32.2 g/dl (32.0-37.0); MEAN CORPUSCULAR VOLUME 84.5 fl (82.0-101.0); MEAN PLATELET VOLUME 10.5 fl (7.4-10.4); MONOCYTE # 0.9 10^3/ul (0.3-0.9); MONOCYTES % 10.1 % (0.0-11.0); NEUTROPHIL # 6.1 10^3/ul (1.6-7.5); NEUTROPHILS % 66.2 % (39.0-77.0); PLATELET COUNT 452 10^3/UL (140-415); RED BLOOD COUNT 3.16 10^6/ul (4.70-6.10); RED CELL DISTRIBUTION WIDTH 14.8 % (11.5-14.5)
[2018-07-28 07:19] LABS: ANION GAP 13 (5-13); BLOOD UREA NITROGEN 24 mg/dl (7-20); CALCIUM 8.8 mg/dl (8.4-10.2); CARBON DIOXIDE 24 mmol/L (21-31); CHLORIDE 104 mmol/L (97-110); CREATININE 5.01 mg/dl (0.61-1.24); GLUCOSE 126 mg/dl (70-220); MAGNESIUM 1.7 mg/dl (1.7-2.5); POTASSIUM 3.4 mmol/L (3.5-5.1); SODIUM 141 mmol/L (135-144)
[2018-07-28] MEDS: Insulin NOVOLOG SS MILD Algorithm (SS with meals and bedtime) SC ×4 (07:25→21:00)
[2018-07-28] MEDS: ALBUTEROL/IPRATROPIUM (NEB) 3 ML AMP HHN ×3 (08:18→19:51)
[2018-07-28] MEDS: ACYCLOVIR 400 MG TAB PO ×3 (09:00→22:19)
[2018-07-28] MEDS: NYSTATIN 30 GM POWDER BTL TOP ×2 (09:00→22:21)
[2018-07-28] MEDS: MESALAMINE (EC) 400 MG CAP PO ×3 (09:00→22:18)
[2018-07-28] MEDS: NIFEdipine (XL) 90 MG TAB PO (09:00)
[2018-07-28] MEDS: METOPROLOL 25 MG TAB PO ×2 (09:00→22:19)
[2018-07-28] MEDS: TAMSULOSIN (SR) 0.4 MG CAP PO (09:00)
[2018-07-28] MEDS: BALSAM PERU/CASTOR OIL 60 GM TUBE TOP ×2 (09:00→22:21)
[2018-07-28] MEDS: AMIODARONE 200 MG TAB PO (09:00)
[2018-07-28] MEDS: DOXYCYCLINE 100 MG TAB PO (09:00)
[2018-07-28] MEDS: LACTOBACILLUS RHAMNOSUS CAP PO ×2 (09:00→22:18)
[2018-07-28] MEDS: LEVETIRACETAM 500 MG (PMX) 100 ML IVPB ×2 (09:02→22:23)
[2018-07-28 12:22] LABS: MYELOPEROXIDASE ANTIBODY <1.0 AI; PROTEINASE-3 ANTIBODY <1.0 AI
[2018-07-28] MEDS ORDERED: LIDOCAINE 2% (MDV) 20 ML INJ (13:40)
[2018-07-28] MEDS ORDERED: HEPARIN 1000 UNITS/ML 10 ML INJ ×2 (13:40→20:24)
[2018-07-28] MEDS ORDERED: HEPARIN 1000 UNITS/NS (A-LINE) 1,000 ML (13:40)
[2018-07-28] MEDS ORDERED: FENTAnyl 50 MCG/ML VIAL (13:41)
[2018-07-28] MEDS: morphine 2 MG INJ IV ×2 (15:01→20:13)
[2018-07-28] MEDS: DEXTROSE 5%-0.45% NACL 1,000 ML IV (17:46)
[2018-07-28] MEDS ORDERED: LIDOCAINE 1% (STERILE-PAK) 30 ML INJ (20:24)
[2018-07-28] MEDS ORDERED: IOHEXOL 300MG/ML 30 ML BTL (20:24)
[2018-07-28] MEDS: MONTELUKAST 10 MG TAB PO (22:19)
[2018-07-29] MEDS: SUCRALFATE (100 MG/ML) 10ML CUP PO ×5 (00:31→23:34)
[2018-07-29] MEDS: metroNIDAZOLE 500 MG TAB PO ×3 (06:02→21:58)
[2018-07-29] MEDS: PANTOPRAZOLE 40 MG INJ IV ×2 (06:02→18:35)
[2018-07-29 06:41] LABS: ADD MAN DIFF? NO
[2018-07-29 06:46] LABS: BASOPHIL # 0.1 10^3/ul (0.0-0.1); BASOPHILS % 1.1 % (0.0-2.0); EOSINOPHILS # 0.2 10^3/ul (0.0-0.5); EOSINOPHILS % 3.2 % (0.0-7.0); HEMATOCRIT 24.8 % (42.0-52.0); HEMOGLOBIN 7.8 g/dl (14.0-18.0); LYMPHOCYTES # 1.3 10^3/ul (0.8-2.9); LYMPHOCYTES % 16.8 % (15.0-51.0); MEAN CORPUSCULAR HEMOGLOBIN 26.9 pg (29.0-33.0); MEAN CORPUSCULAR HGB CONC 31.5 g/dl (32.0-37.0); MEAN CORPUSCULAR VOLUME 85.5 fl (82.0-101.0); MEAN PLATELET VOLUME 10.7 fl (7.4-10.4); MONOCYTE # 0.7 10^3/ul (0.3-0.9); MONOCYTES % 9.1 % (0.0-11.0); NEUTROPHIL # 5.2 10^3/ul (1.6-7.5); NEUTROPHILS % 69.3 % (39.0-77.0); PLATELET COUNT 448 10^3/UL (140-415)
[2018-07-29 06:46] LABS: WHITE BLOOD COUNT 7.5 10^3/ul (4.8-10.8)
[2018-07-29 07:06] LABS: ANION GAP 14 (5-13); BLOOD UREA NITROGEN 27 mg/dl (7-20); CALCIUM 8.5 mg/dl (8.4-10.2); CARBON DIOXIDE 22 mmol/L (21-31); CHLORIDE 106 mmol/L (97-110); CREATININE 6.68 mg/dl (0.61-1.24); GLUCOSE 135 mg/dl (70-220); MAGNESIUM 1.6 mg/dl (1.7-2.5); PHOSPHORUS 6.8 mg/dl (2.5-4.9); POTASSIUM 3.2 mmol/L (3.5-5.1); SODIUM 142 mmol/L (135-144)
[2018-07-29] MEDS: Insulin NOVOLOG SS MILD Algorithm (SS with meals and bedtime) SC ×4 (07:25→20:42)
[2018-07-29] MEDS: ALBUTEROL/IPRATROPIUM (NEB) 3 ML AMP HHN ×3 (07:42→21:10)
[2018-07-29] MEDS: MESALAMINE (EC) 400 MG CAP PO ×3 (09:00→20:42)
[2018-07-29] MEDS: ACYCLOVIR 400 MG TAB PO ×3 (09:00→20:42)
[2018-07-29] MEDS: MAGNESIUM SULFATE 2 GM/50 ML 50 ML IVPB (09:08)
[2018-07-29] MEDS: LEVETIRACETAM 500 MG (PMX) 100 ML IVPB ×2 (10:25→20:41)
[2018-07-29] MEDS: POTASSIUM CHLORIDE 100 ML IVPB (10:45)
[2018-07-29] MEDS: DEXTROSE 5%-0.45% NACL 1,000 ML IV ×2 (13:30→23:34)
[2018-07-29 13:48] LABS: ANCA SCREEN NEGATIVE (NEGATIVE)
[2018-07-29] MEDS: LACTOBACILLUS RHAMNOSUS CAP PO ×2 (14:38→20:42)
[2018-07-29] MEDS: NIFEdipine (XL) 90 MG TAB PO (14:38)
[2018-07-29] MEDS: TAMSULOSIN (SR) 0.4 MG CAP PO (14:39)
[2018-07-29] MEDS: METOPROLOL 25 MG TAB PO ×2 (14:39→20:42)
[2018-07-29] MEDS: AMIODARONE 200 MG TAB PO (14:39)
[2018-07-29] MEDS: BALSAM PERU/CASTOR OIL 60 GM TUBE TOP ×2 (15:30→20:43)
[2018-07-29] MEDS: NYSTATIN 30 GM POWDER BTL TOP ×3 (15:30→21:00)
[2018-07-29] MEDS: MONTELUKAST 10 MG TAB PO (20:42)
[2018-07-29] MEDS: HYDROCODONE/APAP (10/325) TAB PO (21:45)
[2018-07-30] MEDS: INSULIN ASPART [NOVOLOG] 3 ML PEN SC ×6 (01:00→20:52)
[2018-07-30] MEDS ORDERED: HALOPERIDOL 5 MG INJ (02:51)
[2018-07-30] MEDS ORDERED: HALOPERIDOL 5 MG INJ IM (04:00)
[2018-07-30] MEDS: metroNIDAZOLE 500 MG TAB PO ×3 (05:17→22:08)
[2018-07-30] MEDS: SUCRALFATE (100 MG/ML) 10ML CUP PO ×3 (05:17→17:39)
[2018-07-30] MEDS: PANTOPRAZOLE 40 MG INJ IV ×2 (05:28→17:38)
[2018-07-30] MEDS: morphine 2 MG INJ IV ×2 (06:14→20:46)
[2018-07-30] MEDS: ALBUTEROL/IPRATROPIUM (NEB) 3 ML AMP HHN ×3 (08:36→20:54)
[2018-07-30] MEDS: LACTOBACILLUS RHAMNOSUS CAP PO ×2 (09:00→20:46)
[2018-07-30] MEDS: AMIODARONE 200 MG TAB PO (09:00)
[2018-07-30] MEDS: METOPROLOL 25 MG TAB PO ×2 (09:00→20:57)
[2018-07-30] MEDS: ACYCLOVIR 400 MG TAB PO ×3 (09:00→20:48)
[2018-07-30] MEDS: TAMSULOSIN (SR) 0.4 MG CAP PO (09:00)
[2018-07-30] MEDS: MESALAMINE (EC) 400 MG CAP PO ×3 (09:00→20:46)
[2018-07-30] MEDS: NIFEdipine (XL) 90 MG TAB PO (09:00)
[2018-07-30] MEDS: NYSTATIN 30 GM POWDER BTL TOP ×2 (09:36→20:48)
[2018-07-30] MEDS: BALSAM PERU/CASTOR OIL 60 GM TUBE TOP ×2 (09:37→21:36)
[2018-07-30] MEDS: LEVETIRACETAM 500 MG (PMX) 100 ML IVPB ×2 (09:48→21:36)
[2018-07-30 11:53] LABS: HEMATOCRIT 25.9 % (42.0-52.0); HEMOGLOBIN 8.3 g/dl (14.0-18.0)
[2018-07-30] MEDS: HEPARIN 1000 UNITS/ML 10 ML INJ (13:12)
[2018-07-30] MEDS: LIDOCAINE 1% (STERILE-PAK) 30 ML INJ (13:12)
[2018-07-30] MEDS ORDERED: IOHEXOL 300MG/ML 30 ML BTL (13:48)
[2018-07-30] MEDS ORDERED: LIDOCAINE 2% (SDV) 5 ML INJ (13:49)
[2018-07-30] MEDS ORDERED: PROPOFOL 20 ML (13:49)
[2018-07-30] MEDS ORDERED: FENTAnyl 50 MCG/ML VIAL (13:50)
[2018-07-30] MEDS ORDERED: CEFAZOLIN 1 GM INJ (14:21)
[2018-07-30] MEDS ORDERED: PROCHLORPERAZINE 10 MG INJ IV (14:30)
[2018-07-30] MEDS ORDERED: FENTAnyl 50 MCG/ML VIAL IV (14:30)
[2018-07-30] MEDS ORDERED: ONDANSETRON 4 MG INJ IV (14:30)
[2018-07-30] MEDS ORDERED: HYDROmorphONE 1 MG/5 ML IV SYRINGE IV ×2 (14:30)
[2018-07-30] MEDS: MONTELUKAST 10 MG TAB PO (20:48)
[2018-07-31] MEDS: SUCRALFATE (100 MG/ML) 10ML CUP PO ×4 (00:15→18:15)
[2018-07-31] MEDS: INSULIN ASPART [NOVOLOG] 3 ML PEN SC ×6 (01:00→21:56)
[2018-07-31] MEDS: hydrALAzine 20 MG INJ IV (02:11)
[2018-07-31] MEDS: PANTOPRAZOLE 40 MG INJ IV ×2 (05:22→18:15)
[2018-07-31] MEDS: metroNIDAZOLE 500 MG TAB PO ×3 (05:22→21:59)
[2018-07-31] MEDS: DEXTROSE 5%-0.45% NACL 1,000 ML IV (05:30)
[2018-07-31 05:34] LABS: ADD MAN DIFF? NO
[2018-07-31 05:38] LABS: WHITE BLOOD COUNT 9.1 10^3/ul (4.8-10.8)
[2018-07-31 05:38] LABS: BASOPHIL # 0.1 10^3/ul (0.0-0.1); BASOPHILS % 1.2 % (0.0-2.0); EOSINOPHILS # 0.3 10^3/ul (0.0-0.5); EOSINOPHILS % 3.4 % (0.0-7.0); HEMOGLOBIN 8.8 g/dl (14.0-18.0); LYMPHOCYTES # 1.6 10^3/ul (0.8-2.9); LYMPHOCYTES % 17.5 % (15.0-51.0); MEAN CORPUSCULAR HEMOGLOBIN 27.3 pg (29.0-33.0); MEAN CORPUSCULAR HGB CONC 32.6 g/dl (32.0-37.0); MEAN CORPUSCULAR VOLUME 83.9 fl (82.0-101.0); MEAN PLATELET VOLUME 9.9 fl (7.4-10.4); MONOCYTE # 0.7 10^3/ul (0.3-0.9); MONOCYTES % 8.1 % (0.0-11.0); NEUTROPHIL # 6.3 10^3/ul (1.6-7.5); NEUTROPHILS % 69.1 % (39.0-77.0); PLATELET COUNT 440 10^3/UL (140-415); RED BLOOD COUNT 3.22 10^6/ul (4.70-6.10); RED CELL DISTRIBUTION WIDTH 14.8 % (11.5-14.5)
[2018-07-31 06:26] LABS: ANION GAP 12 (5-13); BLOOD UREA NITROGEN 23 mg/dl (7-20); CALCIUM 8.8 mg/dl (8.4-10.2); CARBON DIOXIDE 21 mmol/L (21-31); CHLORIDE 107 mmol/L (97-110); CREATININE 6.29 mg/dl (0.61-1.24); GLUCOSE 123 mg/dl (70-220); POTASSIUM 3.6 mmol/L (3.5-5.1); SODIUM 140 mmol/L (135-144)
[2018-07-31 06:27] LABS: MAGNESIUM 1.9 mg/dl (1.7-2.5); PHOSPHORUS 5.6 mg/dl (2.5-4.9)
[2018-07-31] MEDS: ALBUTEROL/IPRATROPIUM (NEB) 3 ML AMP HHN ×3 (08:02→20:10)
[2018-07-31] MEDS: LACTOBACILLUS RHAMNOSUS CAP PO ×2 (08:10→21:57)
[2018-07-31] MEDS: MESALAMINE (EC) 400 MG CAP PO ×3 (08:10→21:57)
[2018-07-31] MEDS: BALSAM PERU/CASTOR OIL 60 GM TUBE TOP ×2 (08:10→21:00)
[2018-07-31] MEDS: NYSTATIN 30 GM POWDER BTL TOP ×2 (08:10→21:00)
[2018-07-31] MEDS: AMIODARONE 200 MG TAB PO (08:16)
[2018-07-31] MEDS: NIFEdipine (XL) 90 MG TAB PO (08:16)
[2018-07-31] MEDS: TAMSULOSIN (SR) 0.4 MG CAP PO (08:17)
[2018-07-31] MEDS: LEVETIRACETAM 500 MG (PMX) 100 ML IVPB ×2 (08:17→22:02)
[2018-07-31] MEDS: ACYCLOVIR 400 MG TAB PO ×3 (08:17→21:57)
[2018-07-31] MEDS: METOPROLOL 25 MG TAB PO ×2 (08:17→22:10)
[2018-07-31] MEDS: HYDROCODONE/APAP (10/325) TAB PO (09:42)
[2018-07-31] MEDS: morphine 2 MG INJ IV ×3 (10:26→18:15)
[2018-07-31] MEDS: HEPARIN 1000 UNITS/ML 10 ML INJ CATHETER (19:17)
[2018-07-31] MEDS: MONTELUKAST 10 MG TAB PO (21:59)
[2018-08-01] MEDS: ACCU-CHEK XX (02:00)
[2018-08-01 05:48] LABS: ADD MAN DIFF? NO
[2018-08-01] MEDS: PANTOPRAZOLE 40 MG INJ IV (05:59)
[2018-08-01] MEDS: metroNIDAZOLE 500 MG TAB PO ×2 (05:59→13:40)
[2018-08-01] MEDS: SUCRALFATE (100 MG/ML) 10ML CUP PO ×3 (05:59→12:52)
[2018-08-01 06:00] LABS: WHITE BLOOD COUNT 7.1 10^3/ul (4.8-10.8)
[2018-08-01 06:00] LABS: BASOPHIL # 0.1 10^3/ul (0.0-0.1); BASOPHILS % 1.3 % (0.0-2.0); EOSINOPHILS # 0.2 10^3/ul (0.0-0.5); EOSINOPHILS % 2.9 % (0.0-7.0); HEMOGLOBIN 8.1 g/dl (14.0-18.0); LYMPHOCYTES # 1.5 10^3/ul (0.8-2.9); LYMPHOCYTES % 20.5 % (15.0-51.0); MEAN CORPUSCULAR HEMOGLOBIN 27.3 pg (29.0-33.0); MEAN CORPUSCULAR HGB CONC 32.4 g/dl (32.0-37.0); MEAN CORPUSCULAR VOLUME 84.2 fl (82.0-101.0); MEAN PLATELET VOLUME 10.6 fl (7.4-10.4); MONOCYTE # 0.7 10^3/ul (0.3-0.9); MONOCYTES % 10.4 % (0.0-11.0); NEUTROPHIL # 4.6 10^3/ul (1.6-7.5); NEUTROPHILS % 64.3 % (39.0-77.0); PLATELET COUNT 364 10^3/UL (140-415); RED BLOOD COUNT 2.97 10^6/ul (4.70-6.10); RED CELL DISTRIBUTION WIDTH 14.7 % (11.5-14.5)
[2018-08-01] MEDS: HYDROCODONE/APAP (10/325) TAB PO (06:02)
[2018-08-01 06:18] LABS: ANION GAP 12 (5-13); BLOOD UREA NITROGEN 15 mg/dl (7-20); CALCIUM 8.5 mg/dl (8.4-10.2); CARBON DIOXIDE 26 mmol/L (21-31); CHLORIDE 102 mmol/L (97-110); CREATININE 4.45 mg/dl (0.61-1.24); GLUCOSE 111 mg/dl (70-220); MAGNESIUM 1.7 mg/dl (1.7-2.5); PHOSPHORUS 5.6 mg/dl (2.5-4.9); POTASSIUM 3.2 mmol/L (3.5-5.1); SODIUM 140 mmol/L (135-144)
[2018-08-01] MEDS: INSULIN ASPART [NOVOLOG] 3 ML PEN SC ×2 (08:00→12:56)
[2018-08-01] MEDS: TAMSULOSIN (SR) 0.4 MG CAP PO (09:04)
[2018-08-01] MEDS: AMIODARONE 200 MG TAB PO (09:04)
[2018-08-01] MEDS: MESALAMINE (EC) 400 MG CAP PO ×2 (09:04→12:53)
[2018-08-01] MEDS: LACTOBACILLUS RHAMNOSUS CAP PO (09:04)
[2018-08-01] MEDS: ACYCLOVIR 400 MG TAB PO ×2 (09:04→12:53)
[2018-08-01] MEDS: METOPROLOL 25 MG TAB PO (09:05)
[2018-08-01] MEDS: NIFEdipine (XL) 90 MG TAB PO (09:05)
[2018-08-01] MEDS: ALBUTEROL/IPRATROPIUM (NEB) 3 ML AMP HHN ×2 (09:11→16:30)
[2018-08-01] MEDS: morphine 2 MG INJ IV (09:57)
[2018-08-01] MEDS: LEVETIRACETAM 500 MG (PMX) 100 ML IVPB (09:57)
[2018-08-01] MEDS: POTASSIUM CHLORIDE (SR) 20 MEQ TAB PO (12:42)
[2018-08-01] MEDS: NYSTATIN 30 GM POWDER BTL TOP (13:40)
[2018-08-01] MEDS: BALSAM PERU/CASTOR OIL 60 GM TUBE TOP (13:40)
[2018-08-01] MEDS: ACETAMINOPHEN 325 MG TAB PO (17:13)
== END 2018-08-01 18:05 | disposition home health service (06) | DRG 871 ==
LOC: TEL 07-21 12:44 → E/R 04:07 → ICU 07-17 12:49 → PP2 07-29 16:10 → TEL 09:04
PROC: 0DB58ZX Excision of Esophagus, Via Natural or Artificial Opening Endoscopic, Diagnostic (ICD-10-PCS; 2018-07-25 15:30)
PROC: 0DB68ZX Excision of Stomach, Via Natural or Artificial Opening Endoscopic, Diagnostic (ICD-10-PCS; 2018-07-25 15:30)
PROC: 0DBG8ZX Excision of Left Large Intestine, Via Natural or Artificial Opening Endoscopic, Diagnostic (ICD-10-PCS; 2018-07-25 15:30)
PROC: 0DBF8ZX Excision of Right Large Intestine, Via Natural or Artificial Opening Endoscopic, Diagnostic (ICD-10-PCS; 2018-07-25 15:30)
PROC: 06HM33Z Insertion of Infusion Device into Right Femoral Vein, Percutaneous Approach (ICD-10-PCS; principal; 2018-07-25 16:00)
PROC: 0W993ZZ Drainage of Right Pleural Cavity, Percutaneous Approach (ICD-10-PCS; 2018-07-25 16:00)
PROC: 0JH63XZ Insertion of Tunneled Vascular Access Device into Chest Subcutaneous Tissue and Fascia, Percutaneous Approach (ICD-10-PCS; 2018-07-25 16:00)
PROC: 05HM33Z Insertion of Infusion Device into Right Internal Jugular Vein, Percutaneous Approach (ICD-10-PCS; 2018-07-25 16:00)
PROC: 5A1D70Z Performance of Urinary Filtration, Intermittent, Less than 6 Hours Per Day (ICD-10-PCS; 2018-07-25 16:00)
PROC: 5A1D70Z Performance of Urinary Filtration, Intermittent, Less than 6 Hours Per Day (ICD-10-PCS; 2018-07-25 16:00)
PROC: 5A1D70Z Performance of Urinary Filtration, Intermittent, Less than 6 Hours Per Day (ICD-10-PCS; 2018-07-25 16:00)
PROC: 5A1D70Z Performance of Urinary Filtration, Intermittent, Less than 6 Hours Per Day (ICD-10-PCS; 2018-07-25 16:00)
PROC: 5A1D70Z Performance of Urinary Filtration, Intermittent, Less than 6 Hours Per Day (ICD-10-PCS; 2018-07-25 16:00)
PROC: 5A1D70Z Performance of Urinary Filtration, Intermittent, Less than 6 Hours Per Day (ICD-10-PCS; 2018-07-25 16:00)
PROC: 5A1D70Z Performance of Urinary Filtration, Intermittent, Less than 6 Hours Per Day (ICD-10-PCS; 2018-07-25 16:00)
PROC: 5A1D70Z Performance of Urinary Filtration, Intermittent, Less than 6 Hours Per Day (ICD-10-PCS; 2018-07-25 16:00)
PROC: 30233N1 Transfusion of Nonautologous Red Blood Cells into Peripheral Vein, Percutaneous Approach (ICD-10-PCS; 2018-07-25 16:00)
DX: A41.9 Sepsis, unspecified organism (principal); N17.0 Acute kidney failure with tubular necrosis; N18.6 End stage renal disease; A09 Infectious gastroenteritis and colitis, unspecified; E87.2 Acidosis; G93.40 Encephalopathy, unspecified; J90 Pleural effusion, not elsewhere classified; K56.609 Unspecified intestinal obstruction, unspecified as to partial versus complete obstruction; K92.0 Hematemesis; I12.0 Hypertensive chronic kidney disease with stage 5 chronic kidney disease or end stage renal disease; I47.2 Ventricular tachycardia; K92.2 Gastrointestinal hemorrhage, unspecified; B37.81 Candidal esophagitis; J44.9 Chronic obstructive pulmonary disease, unspecified; E11.22 Type 2 diabetes mellitus with diabetic chronic kidney disease; I48.0 Paroxysmal atrial fibrillation; E66.01 Morbid (severe) obesity due to excess calories; G40.909 Epilepsy, unspecified, not intractable, without status epilepticus; D63.1 Anemia in chronic kidney disease; N40.0 Benign prostatic hyperplasia without lower urinary tract symptoms; M19.90 Unspecified osteoarthritis, unspecified site; E78.5 Hyperlipidemia, unspecified; K29.70 Gastritis, unspecified, without bleeding; K64.8 Other hemorrhoids; Z68.35 Body mass index [BMI] 35.0-35.9, adult; Z99.2 Dependence on renal dialysis; Z79.4 Long term (current) use of insulin; Z87.891 Personal history of nicotine dependence
CPT/HCPCS: 36415; 36430; 70450; 71045; 74018; 74176; 74250; 76604; 76942; 80048; 80053; 80069; 80202; 81001; 82962; 83036; 83605; 83690; 83735; 84100; 85014; 85018; 85025; 85049; 85610; 85670; 85730; 86021; 86703; 86704; 86706; 86709; 86803; 86850; 86900; 86901; 86920; 87040; 87045; 87075; 87081; 87177; 87340; 88305; 88312; 88313; 90686; 90935; 92526; 92610; 93005; 93306; 94640; 94664; 96374; 96375; 97116; 97162; 97167; 97530; 99285-25

== ENCOUNTER 2018-10-07 19:41 | Inpatient (IN) | payer MEDICARE, OTHER ==
[2018-10-07 23:27] LABS: ABNORMAL IP MESSAGE 1; HEMOGLOBIN 11.4 g/dl (14.0-18.0); MEAN CORPUSCULAR HEMOGLOBIN 29.8 pg (29.0-33.0); MEAN CORPUSCULAR HGB CONC 31.7 g/dl (32.0-37.0); MEAN PLATELET VOLUME 10.3 fl (7.4-10.4); PLATELET COUNT 297 10^3/UL (140-415); POSITIVE DIFF @See below; RED BLOOD COUNT 3.83 10^6/ul (4.70-6.10); RED CELL DISTRIBUTION WIDTH 16.1 % (11.5-14.5)
[2018-10-07 23:27] LABS: WHITE BLOOD COUNT 23.7 10^3/ul (4.8-10.8)
[2018-10-07 23:33] LABS: ADD MAN DIFF? YES
[2018-10-07 23:46] LABS: ALANINE AMINOTRANSFERASE < 6 IU/L (13-69); ALBUMIN 3.7 g/dl (3.3-4.9); ALBUMIN/GLOBULIN RATIO 0.92; ALKALINE PHOSPHATASE 148 IU/L (42-121); ANION GAP 19 (5-13); ASPARTATE AMINO TRANSFERASE 25 IU/L (15-46); BLOOD UREA NITROGEN 59 mg/dl (7-20); CALCIUM 8.8 mg/dl (8.4-10.2); CARBON DIOXIDE 19 mmol/L (21-31); CHLORIDE 94 mmol/L (97-110); CREATININE 8.88 mg/dl (0.61-1.24); GLUCOSE 92 mg/dl (70-220); INR 1.05; POTASSIUM 4.3 mmol/L (3.5-5.1); PROTIME 13.8 Sec (11.9-14.9); PT RATIO 1.1; SODIUM 132 mmol/L (135-144); TOTAL PROTEIN 7.7 g/dl (6.1-8.1)
[2018-10-07 23:47] LABS: PARTIAL THROMBOPLASTIN TIME 42.9 Sec (23.0-35.0)
[2018-10-07 23:58] LABS: TROPONIN-I 0.043 ng/ml (0.000-0.120)
[2018-10-08 00:22] LABS: ANISOCYTOSIS 1+ (0-0); BAND NEUTROPHILS #M 4.2 10^3/ul (0.0-0.6); BAND NEUTROPHILS % (M) 18 % (0-4); EOSINOPHILS % (M) 2 % (0-7); LYMPHOCYTES #M 1.1 10^3/ul (0.8-2.9); LYMPHOCYTES % (M) 5 % (15-51); MONOCYTE #M 1.8 10^3/ul (0.3-0.9); MONOCYTES % (M) 8 % (0-11); PLATELET ESTIMATE NORMAL; POIKILOCYTOSIS 2+ (0-0); POLYCHROMASIA 1+ (0-0); SEG NEUT #M 16.9 10^3/ul (1.6-7.5); SEGMENTED NEUTROPHILS (M) % 67 % (39-77)
[2018-10-08] MEDS: PIPER-TAZO 2.25 GM (PMX) 50 ML IVPB ×4 (01:54→21:37)
[2018-10-08] MEDS ORDERED: ALBUTEROL HFA 8 GM INHALER INH (04:30)
[2018-10-08] MEDS ORDERED: NACL 0.9% 3 ML SYG IV (04:30)
[2018-10-08] MEDS ORDERED: ONDANSETRON 4 MG INJ IV (04:30)
[2018-10-08 05:04] LABS: ADD MAN DIFF? NO
[2018-10-08 05:12] LABS: ABNORMAL IP MESSAGE 1; BASOPHIL # 0.1 10^3/ul (0.0-0.1); BASOPHILS % 0.4 % (0.0-2.0); EOSINOPHILS # 0.1 10^3/ul (0.0-0.5); EOSINOPHILS % 0.5 % (0.0-7.0); HEMATOCRIT 30.7 % (42.0-52.0); HEMOGLOBIN 9.9 g/dl (14.0-18.0); LYMPHOCYTES # 1.4 10^3/ul (0.8-2.9); LYMPHOCYTES % 6.8 % (15.0-51.0); MEAN CORPUSCULAR HEMOGLOBIN 29.7 pg (29.0-33.0); MEAN CORPUSCULAR HGB CONC 32.2 g/dl (32.0-37.0); MEAN CORPUSCULAR VOLUME 92.2 fl (82.0-101.0); MEAN PLATELET VOLUME 10.8 fl (7.4-10.4); MONOCYTE # 1.7 10^3/ul (0.3-0.9); MONOCYTES % 8.3 % (0.0-11.0); NEUTROPHIL # 17.2 10^3/ul (1.6-7.5); NEUTROPHILS % 82.9 % (39.0-77.0); PLATELET COUNT 277 10^3/UL (140-415); POSITIVE DIFF @See below; RED BLOOD COUNT 3.33 10^6/ul (4.70-6.10)
[2018-10-08 05:12] LABS: WHITE BLOOD COUNT 20.8 10^3/ul (4.8-10.8)
[2018-10-08] MEDS: PANTOPRAZOLE (EC) 40 MG TAB PO (05:29)
[2018-10-08] MEDS: DEXTROSE 5%-0.45% NACL 1,000 ML IV ×2 (05:29→18:11)
[2018-10-08 05:32] LABS: LACTIC ACID 1.4 mmol/L (0.5-2.0)
[2018-10-08 05:34] LABS: ALANINE AMINOTRANSFERASE 15 IU/L (13-69); ALBUMIN 2.7 g/dl (3.3-4.9); ALBUMIN/GLOBULIN RATIO 0.87; ALKALINE PHOSPHATASE 117 IU/L (42-121); ANION GAP 20 (5-13); ASPARTATE AMINO TRANSFERASE 22 IU/L (15-46); BLOOD UREA NITROGEN 64 mg/dl (7-20); CALCIUM 8.2 mg/dl (8.4-10.2); CARBON DIOXIDE 17 mmol/L (21-31); CHLORIDE 96 mmol/L (97-110); CREATININE 8.71 mg/dl (0.61-1.24); GLUCOSE 91 mg/dl (70-220); POTASSIUM 4.5 mmol/L (3.5-5.1); SODIUM 133 mmol/L (135-144); TOTAL PROTEIN 5.8 g/dl (6.1-8.1)
[2018-10-08] MEDS: morphine 4 MG/ML VIAL IV ×3 (07:35→18:21)
[2018-10-08] MEDS: AMIODARONE 200 MG TAB PO ×2 (08:31→09:58)
[2018-10-08 11:51] LABS: OCCULT BLOOD STOOL NEGATIVE (NEGATIVE)
[2018-10-08] MEDS ORDERED: GLUCAGON 1 MG INJ IM (19:30)
[2018-10-08] MEDS ORDERED: GLUCOSE GEL 15 GRAM TUBE BUCCAL (19:30)
[2018-10-08] MEDS ORDERED: GLUCOSE GEL 15 GRAM TUBE PO ×2 (19:30)
[2018-10-08] MEDS ORDERED: DEXTROSE 50% 50 ML SYRINGE IV ×2 (19:30)
[2018-10-08] MEDS: BUDESONIDE (NEB) 0.5MG/2ML AMP HHN (19:57)
[2018-10-08] MEDS: ARFORMOTEROL TARTRATE 15MCG/2 ML AMP HHN (19:57)
[2018-10-08] MEDS: INSULIN ASPART [NOVOLOG] 3 ML PEN SC (21:00)
[2018-10-08] MEDS: TAMSULOSIN (SR) 0.4 MG CAP PO (21:36)
[2018-10-08] MEDS: MONTELUKAST 10 MG TAB PO (21:36)
[2018-10-09] MEDS: INSULIN ASPART [NOVOLOG] 3 ML PEN SC ×6 (01:00→20:58)
[2018-10-09] MEDS: ACETAMINOPHEN 325 MG TAB PO ×2 (02:53→11:14)
[2018-10-09] MEDS: PANTOPRAZOLE (EC) 40 MG TAB PO (05:10)
[2018-10-09] MEDS: DEXTROSE 5%-0.45% NACL 1,000 ML IV ×2 (05:10→06:56)
[2018-10-09] MEDS: PIPER-TAZO 2.25 GM (PMX) 50 ML IVPB (05:10)
[2018-10-09 05:14] LABS: ADD MAN DIFF? NO
[2018-10-09 05:39] LABS: BASOPHIL # 0.1 10^3/ul (0.0-0.1); BASOPHILS % 0.4 % (0.0-2.0); EOSINOPHILS # 0.1 10^3/ul (0.0-0.5); EOSINOPHILS % 0.4 % (0.0-7.0); HEMATOCRIT 27.1 % (42.0-52.0); HEMOGLOBIN 8.9 g/dl (14.0-18.0); LYMPHOCYTES # 1.8 10^3/ul (0.8-2.9); LYMPHOCYTES % 8.8 % (15.0-51.0); MEAN CORPUSCULAR HGB CONC 32.8 g/dl (32.0-37.0); MEAN CORPUSCULAR VOLUME 91.2 fl (82.0-101.0); MEAN PLATELET VOLUME 10.5 fl (7.4-10.4); MONOCYTE # 1.1 10^3/ul (0.3-0.9); MONOCYTES % 5.3 % (0.0-11.0); NEUTROPHIL # 17.6 10^3/ul (1.6-7.5); NEUTROPHILS % 84.6 % (39.0-77.0); PLATELET COUNT 279 10^3/UL (140-415); RED BLOOD COUNT 2.97 10^6/ul (4.70-6.10)
[2018-10-09 05:39] LABS: WHITE BLOOD COUNT 20.7 10^3/ul (4.8-10.8)
[2018-10-09 06:07] LABS: ANION GAP 20 (5-13); BLOOD UREA NITROGEN 71 mg/dl (7-20); CALCIUM 7.5 mg/dl (8.4-10.2); CARBON DIOXIDE 15 mmol/L (21-31); CHLORIDE 95 mmol/L (97-110); CREATININE 10.07 mg/dl (0.61-1.24); GLUCOSE 127 mg/dl (70-220); MAGNESIUM 1.8 mg/dl (1.7-2.5); PHOSPHORUS 9.1 mg/dl (2.5-4.9); POTASSIUM 3.8 mmol/L (3.5-5.1); SODIUM 130 mmol/L (135-144)
[2018-10-09] MEDS: MEGESTROL (40 MG/ML) 10ML CUP PO ×2 (09:28→20:58)
[2018-10-09] MEDS: AMIODARONE 200 MG TAB PO (09:28)
[2018-10-09] MEDS: ARFORMOTEROL TARTRATE 15MCG/2 ML AMP HHN ×2 (09:48→19:45)
[2018-10-09] MEDS: BUDESONIDE (NEB) 0.5MG/2ML AMP HHN ×2 (09:48→19:45)
[2018-10-09] MEDS ORDERED: SODIUM CHLORIDE 0.9% 1L BAG IV (11:00)
[2018-10-09] MEDS ORDERED: ALBUMIN HUMAN 25% 100 ML IV (11:00)
[2018-10-09] MEDS ORDERED: HEPARIN 1000 UNITS/ML 10 ML INJ CATHETER (11:00)
[2018-10-09] MEDS: CEPASTAT LOZENGE MT ×2 (12:33→18:03)
[2018-10-09] MEDS: VANCOMYCIN HCL 250 MG/5ML POSYG PO ×2 (12:34→18:08)
[2018-10-09 15:31] LABS: AMMONIA 19 umol/l (9-30)
[2018-10-09 18:13] LABS: HEPATITIS B SURFACE ANTIGEN NEGATIVE (NEGATIVE)
[2018-10-09 18:30] LABS: HEPATITIS B SURFACE ANTIBODY NEGATIVE (NEGATIVE)
[2018-10-09] MEDS: MONTELUKAST 10 MG TAB PO (20:58)
[2018-10-09] MEDS: TAMSULOSIN (SR) 0.4 MG CAP PO (20:58)
[2018-10-10] MEDS: VANCOMYCIN HCL 250 MG/5ML POSYG PO ×5 (00:55→23:46)
[2018-10-10] MEDS: INSULIN ASPART [NOVOLOG] 3 ML PEN SC ×6 (01:00→21:00)
[2018-10-10 05:10] LABS: ADD MAN DIFF? NO
[2018-10-10 05:12] LABS: WHITE BLOOD COUNT 18.6 10^3/ul (4.8-10.8)
[2018-10-10 05:12] LABS: BASOPHIL # 0.1 10^3/ul (0.0-0.1); BASOPHILS % 0.4 % (0.0-2.0); EOSINOPHILS # 0.3 10^3/ul (0.0-0.5); EOSINOPHILS % 1.3 % (0.0-7.0); HEMATOCRIT 28.4 % (42.0-52.0); HEMOGLOBIN 9.1 g/dl (14.0-18.0); LYMPHOCYTES # 1.1 10^3/ul (0.8-2.9); LYMPHOCYTES % 6.1 % (15.0-51.0); MEAN CORPUSCULAR HEMOGLOBIN 29.3 pg (29.0-33.0); MEAN CORPUSCULAR VOLUME 91.3 fl (82.0-101.0); MEAN PLATELET VOLUME 10.5 fl (7.4-10.4); MONOCYTE # 1.5 10^3/ul (0.3-0.9); NEUTROPHIL # 15.5 10^3/ul (1.6-7.5); NEUTROPHILS % 83.5 % (39.0-77.0); PLATELET COUNT 286 10^3/UL (140-415); RED BLOOD COUNT 3.11 10^6/ul (4.70-6.10)
[2018-10-10 05:40] LABS: ANION GAP 19 (5-13); BLOOD UREA NITROGEN 80 mg/dl (7-20); CALCIUM 7.6 mg/dl (8.4-10.2); CARBON DIOXIDE 14 mmol/L (21-31); CHLORIDE 100 mmol/L (97-110); CREATININE 10.63 mg/dl (0.61-1.24); GLUCOSE 97 mg/dl (70-220); POTASSIUM 4.1 mmol/L (3.5-5.1); SODIUM 133 mmol/L (135-144)
[2018-10-10] MEDS: PANTOPRAZOLE (EC) 40 MG TAB PO (05:42)
[2018-10-10 05:44] LABS: MAGNESIUM 1.9 mg/dl (1.7-2.5)
[2018-10-10 05:44] LABS: PHOSPHORUS 11.5 mg/dl (2.5-4.9)
[2018-10-10] MEDS: BUDESONIDE (NEB) 0.5MG/2ML AMP HHN ×2 (09:00→19:28)
[2018-10-10] MEDS: MEGESTROL (40 MG/ML) 10ML CUP PO (10:09)
[2018-10-10] MEDS: ACETAMINOPHEN 325 MG TAB PO ×2 (10:09→19:25)
[2018-10-10] MEDS: ARFORMOTEROL TARTRATE 15MCG/2 ML AMP HHN ×2 (10:25→19:28)
[2018-10-10] MEDS: AMIODARONE 200 MG TAB PO (11:32)
[2018-10-10] MEDS: MONTELUKAST 10 MG TAB PO (21:52)
[2018-10-10] MEDS: TAMSULOSIN (SR) 0.4 MG CAP PO (21:52)
[2018-10-11] MEDS: ACETAMINOPHEN 325 MG TAB PO (01:06)
[2018-10-11] MEDS: INSULIN ASPART [NOVOLOG] 3 ML PEN SC ×3 (01:15→08:51)
[2018-10-11] MEDS: PANTOPRAZOLE (EC) 40 MG TAB PO (05:22)
[2018-10-11] MEDS: VANCOMYCIN HCL 250 MG/5ML POSYG PO ×2 (05:22→12:31)
[2018-10-11] MEDS: MEGESTROL (40 MG/ML) 10ML CUP PO (08:09)
[2018-10-11] MEDS: AMIODARONE 200 MG TAB PO (08:10)
[2018-10-11] MEDS: BUDESONIDE (NEB) 0.5MG/2ML AMP HHN (08:50)
[2018-10-11] MEDS: ARFORMOTEROL TARTRATE 15MCG/2 ML AMP HHN (08:51)
[2018-10-11 09:36] LABS: ADD MAN DIFF? NO
[2018-10-11 09:43] LABS: WHITE BLOOD COUNT 12.6 10^3/ul (4.8-10.8)
[2018-10-11 09:43] LABS: ABNORMAL IP MESSAGE 1; BASOPHIL # 0.1 10^3/ul (0.0-0.1); BASOPHILS % 0.4 % (0.0-2.0); EOSINOPHILS # 0.2 10^3/ul (0.0-0.5); EOSINOPHILS % 1.8 % (0.0-7.0); HEMATOCRIT 29.3 % (42.0-52.0); HEMOGLOBIN 9.5 g/dl (14.0-18.0); LYMPHOCYTES # 1.5 10^3/ul (0.8-2.9); LYMPHOCYTES % 12.1 % (15.0-51.0); MEAN CORPUSCULAR HEMOGLOBIN 29.1 pg (29.0-33.0); MEAN CORPUSCULAR HGB CONC 32.4 g/dl (32.0-37.0); MEAN CORPUSCULAR VOLUME 89.9 fl (82.0-101.0); MEAN PLATELET VOLUME 10.4 fl (7.4-10.4); MONOCYTE # 1.6 10^3/ul (0.3-0.9); MONOCYTES % 12.4 % (0.0-11.0); NEUTROPHIL # 9.1 10^3/ul (1.6-7.5); NEUTROPHILS % 72.7 % (39.0-77.0); PLATELET COUNT 297 10^3/UL (140-415); POSITIVE DIFF @See below; RED BLOOD COUNT 3.26 10^6/ul (4.70-6.10); RED CELL DISTRIBUTION WIDTH 15.6 % (11.5-14.5)
[2018-10-11 10:12] LABS: ALANINE AMINOTRANSFERASE 13 IU/L (13-69); ALBUMIN 2.9 g/dl (3.3-4.9); ALKALINE PHOSPHATASE 192 IU/L (42-121); ANION GAP 14 (5-13); ASPARTATE AMINO TRANSFERASE 14 IU/L (15-46); BLOOD UREA NITROGEN 51 mg/dl (7-20); CALCIUM 7.8 mg/dl (8.4-10.2); CARBON DIOXIDE 23 mmol/L (21-31); CHLORIDE 97 mmol/L (97-110); CREATININE 7.21 mg/dl (0.61-1.24); GLUCOSE 99 mg/dl (70-220); PHOSPHORUS 5.8 mg/dl (2.5-4.9); POTASSIUM 3.2 mmol/L (3.5-5.1); SODIUM 134 mmol/L (135-144); TOTAL PROTEIN 6.5 g/dl (6.1-8.1)
== END 2018-10-11 13:05 | disposition home health service (06) | DRG 871 ==
LOC: E/R 19:41 → MS1 10-08 01:31
PROVIDERS: Internal Medicine
PROC: 5A1D70Z Performance of Urinary Filtration, Intermittent, Less than 6 Hours Per Day (ICD-10-PCS; principal; 2018-10-10)
DX: A41.9 Sepsis, unspecified organism (principal); N18.6 End stage renal disease; A04.72 Enterocolitis due to Clostridium difficile, not specified as recurrent; I12.0 Hypertensive chronic kidney disease with stage 5 chronic kidney disease or end stage renal disease; E11.22 Type 2 diabetes mellitus with diabetic chronic kidney disease; G40.909 Epilepsy, unspecified, not intractable, without status epilepticus; J44.9 Chronic obstructive pulmonary disease, unspecified; N40.0 Benign prostatic hyperplasia without lower urinary tract symptoms; R62.7 Adult failure to thrive; Z68.24 Body mass index [BMI] 24.0-24.9, adult; Z99.2 Dependence on renal dialysis; Z87.891 Personal history of nicotine dependence
CPT/HCPCS: 36415; 71045; 74176; 80048; 80053; 82140; 82270; 82962; 83605; 83735; 84100; 84484; 85025; 85610; 85730; 86674; 86706; 87040; 87045; 87075; 87177; 87340; 90935; 93005; 94640; 94664; 97116; 97161; 97167; 97530; 99285-25

== ENCOUNTER 2019-01-06 00:39 | Emergency (ER) | payer MEDICARE, OTHER ==
[2019-01-06] MEDS: HYDROCODONE/APAP (10/325) TAB PO (01:42)
[2019-01-06] MEDS: ONDANSETRON (ODT) 4 MG TAB ODT (01:42)
[2019-01-06] MEDS: morphine 4 MG/ML VIAL IV (02:27)
[2019-01-06] MEDS ORDERED: HYDROmorphONE 2 MG/ML SYG IV (03:12)
[2019-01-06] MEDS: HYDROmorphONE 2 MG/ML SYG IV (03:20)
== END 2019-01-06 05:30 | disposition home or self-care (01) ==
LOC: E/R 00:39
DX: M25.561 Pain in right knee (principal); M25.562 Pain in left knee; J44.9 Chronic obstructive pulmonary disease, unspecified; N18.9 Chronic kidney disease, unspecified; I12.9 Hypertensive chronic kidney disease with stage 1 through stage 4 chronic kidney disease, or unspecified chronic kidney disease; E11.22 Type 2 diabetes mellitus with diabetic chronic kidney disease; Z79.4 Long term (current) use of insulin; Z87.891 Personal history of nicotine dependence; Z99.2 Dependence on renal dialysis
CPT/HCPCS: 96374; 96375; 99284-25